=== PATIENT | female | born 1965 | race Caucasian/White ===

== ENCOUNTER 2018-09-02 09:57 | Emergency (ER) | payer MEDICARE, OTHER, SELFPAY ==
[2018-09-02 10:00] VITALS: BP 156/94; PULSE 74; RESP 18; TEMP 36.8; O2SAT 100
[2018-09-02 10:30] VITALS: BP 144/72; PULSE 71; O2SAT 98
[2018-09-02] MEDS: PROPARACAINE 0.5% OPHTH SOL 1 DROPS EYE-LEFT (10:46)
--- NOTE | 2018-09-02 10:48 | PC.NURSE ---
seen and evaluated at [facility] yesterday. pt also reports, worsening IBS concern for bladder infection, reports, back pain, relieved with warm blanket
--- NOTE | 2018-09-02 10:59 | ED_ITS ---
HPI - Eye Problem General Chief complaint: Eye Problems Stated complaint: VISION LOSS LFT EYE Time Seen by Provider: 09/02/18 10:12 Source: patient Mode of arrival: ambulatory Limitations: no limitations History of Present Illness HPI Narrative: Patient is a 53-year-old female who presents with left eye visual changes. She said they started yesterday after she had a migraine headache. If she has actually seen evaluated yesterday at [facility] where she had head CT blood work and visual acuity. She had Toradol and Benadryl and was released. She actually has an Ophthalmology appointment on Tuesday. She feels like has a squiggly line in her vision is and is worried about a retinal detachment. She does not have curtian closing or loss of vision , blackness, she seems to have some left upper quadrant visual changes which she says is blurry. It sounds more like she has floaters because it seems to be moving around. She is complaining of some eye pain and has been rubbing her eye. She has no eye discharge redness or irritation. MD chief complaint: eye pain and vision change Related Data Previous Rx's Medication Instructions Recorded gentamicin 2 drop EYE-LEFT Q4W #5 ml 09/02/18 Allergies Allergy/AdvReac Type Severity Reaction Status Date / Time codeine Allergy Verified 09/02/18 10:37 Review of Systems Review of Systems All systems reviewed & are unremarkable except as noted in HPI and below Constitutional Denies chills, Denies fever(s), Reports headache(s), Denies lethargy and Denies weakness Eyes Reports as per HPI ENT Ears, Nose, Mouth, and Throat: Reports as per HPI and Reports headache(s) Cardiovascular Denies chest pain, Denies irregular heart rhythm, Denies lightheadedness, Denies palpitations, Denies dyspnea, Denies dyspnea on exertion and Denies orthopnea Respiratory Denies cough, Denies dyspnea, Denies dyspnea on exertion and Denies wheezing Gastrointestinal Gastrointestinal: Denies abdominal pain, Denies change in bowel habits, Denies diarrhea, Denies nausea and Denies vomiting Genitourinary Comments: History of interstitial cystitis Musculoskeletal Reports back pain (Right buttock back pain-on radiating), Denies muscle weakness , Denies numbness, Denies radiating pain into limb and Denies tingling Integumentary/Breasts Denies pruritus, Denies erythema, Denies rash and Denies wounds Neurologic Reports headache(s), Denies numbness, Denies tingling and Denies weakness Endocrine Denies palpitations Allergic/Immunologic Denies wheezing PFSH Medical History Interstitial cystitis (Acute) Social History Smoking Status: Never smoker Exam Initial Vital Signs Initial Vital Signs: Vital Signs Temperature 98.3 F 09/02/18 10:00 Pulse Rate 74 09/02/18 10:00 Respiratory Rate 18 09/02/18 10:00 Blood Pressure 156/94 H 09/02/18 10:00 Pulse Oximetry 100 09/02/18 10:00 GENERAL: Well-appearing, well-nourished and in no acute distress. HEENT: Head atraumatic,EOMI, pupils reactive, EYES CARDIOVASCULAR: Regular rate and rhythm without murmurs, rubs or gallops. RESPIRATORY: Breath sounds equal bilaterally, no wheezes rales or rhonchi. ABDOMEN: Soft, nontender. Normoactive bowel sounds all 4 quadrants. No guarding or rebound. : No CVA tenderness BACK: No vertebral tenderness no step-offs some right gluteal low lumbar EXTREMITIES: Normal range of motion, no clubbing or edema. Neurovascularly intact NEUROLOGICAL: Alert and oriented x4.Normal gait and speech. Cranial nerves II through XII grossly intact. Good [id number], good [id number], strength equal bilaterally, no dysarthria or aphasia, sensation in tact to soft touch bilaterally, no visual changes, no facial droop SKIN: Warm, dry, no laceration, no petechiae, no rashes or lesions. Eyes General: appearance normal, both eyes and all related structures Visual Shea: normal visual shea by confrontation Alignment and Position: alignment normal Periorbital: periorbital findings normal Eyelids: eyelids normal Conjunctivae: conjunctivae normal Sclera: sclerae normal Cornea: corneas abnormal on the left (Small dye uptake at 9:00 a.m. position) and fluorescein used Other: Pressure in the left eye is 24 mg of mercury, pressure in right eye is 23 mg of mercury Bedside ultrasound of left eye does not show retinal detachment or vitreous humor hemorrhage Scores NIH Stroke Scale Level of Conciousness: Alert, keenly responsive Ask month/age: Answers both questions correctly. Open/close eyes, close hand: Performs both tasks correctly Best gaze horizontal: Normal Visual shea: No visual loss Facial palsy: Normal symetrical movement Left arm drift: No drift for full 10 sec Right arm drift: No drift for full 10 sec Left leg drift: No drift for full 10 sec Right leg drift: No drift for full 10 sec Limb ataxia: Absent Sensory on face/arms/legs: Normal, no sensory loss Best language: No aphasia, normal Dysarthria: Normal Extinction or inattention: No abnormality Total NIH Stroke scale score: 0 Course Orders Ordered: ED Orders 09/02/18 10:14 B Type Natriuretic Peptide Stat Blood Culture Stat Complete Blood Count AUTO DIFF Stat Comprehensive Metabolic Panel Stat Lactate (Lactic Acid) Stat Procalcitonin Stat 09/02/18 10:15 Troponin & CK Cardiac Panel Stat Discontinued Medications Ceftriaxone Sodium/Dextrose (Rocephin) 1 gm in 50 mls @ 100 mls/hr IV NOW ONE Stop: 09/02/18 10:44 Azithromycin 500 mg/ Dextrose 250 mls @ 250 mls/hr IV NOW ONE Stop: 09/02/18 10:15 Sodium Chloride (Normal Saline 0.9%) 1,000 mls @ 200 mls/hr IV CONT SCOT Ketorolac Tromethamine (Toradol) 30 mg IV NOW ONE Stop: 09/02/18 10:33 Ondansetron HCl (Zofran) 4 mg IV NOW ONE Stop: 09/02/18 10:33 Proparacaine HCl (Parcaine 0.5% Ophth Norma) 1 drops EYE-LEFT NOW ONE Stop: 09/02/18 10:46 Last Admin: 09/02/18 10:46 Dose: 1 drop Vital Signs - 8 hr 09/02/18 10:00 09/02/18 10:30 09/02/18 11:00 Temperature 98.3 F Pulse Rate 74 71 64 Respiratory Rate 18 Blood Pressure 156/94 H Blood Pressure [Right Arm] 144/72 H 120/68 Pulse Oximetry 100 98 97 MDM - Eye Problem Lab Data Urine Dip Bedside Urine Glucose Negative Bedside Urine Bilirubin - Negative Bedside Urine Ketone - Negative Urine Specific [place] 1.010 Bedside Urine Occult Blood - Negative Bedside Urine pH 6.0 Bedside Urine Protein - Negative Bedside Urine Urobilinogen - Negative Bedside Urine Nitrite - Negative Bedside Urine Leukocytes - Negative Esterase MDM Narrative Medical decision making narrative: Patient has no signs or symptoms of stroke she had a negative head CT and blood work up yesterday. She is concerned because her eye is still painful. She does have a small corneal abrasion but no direct injury she has been rubbing it a lot. She has appointment with Ophthalmology on Tuesday.. Her visual deficit does not seem to be partial hemianopsia or stroke related. She feels better after the pressure in her eye was checked and is confirm she has not have a retinal detachment. Discharge Plan Departure Patient Disposition: Home Clinical Impression: Corneal abrasion Instructions: Corneal Abrasion Activity Restrictions/Additional Instructions: *You have been diagnosed with corneal abrasion *What to do: At this time pressure in both eyes are equal and normal no sign of glaucoma or retinal detachment *Continue to take medications as directed -2 drops left eye every 4 hr while awake for 1 *Follow up with your primary care provider in 2-3 days, follow up with Ophthalmology as previously scheduled on Tuesday *Return to ER if you should have any new, worsening or concerning symptoms Prescriptions: New gentamicin 0.3 % drops 2 drop EYE-LEFT Q4W Qty: 5 RF: 0 Referrals: Chelle Ndiaye, MSN [Primary Care Provider] -
[2018-09-02 11:00] VITALS: BP 120/68; PULSE 64; O2SAT 97
== END 2018-09-02 11:32 | disposition home or self-care (01) ==
PROVIDERS: Emergency Provider Emergency Medicine; Family Provider Nurse Practitioner Primary Care; PCP Nurse Practitioner Primary Care
DX: S05.02XA Injury of conjunctiva and corneal abrasion without foreign body, left eye, initial encounter (principal)
CPT/HCPCS: 81003; 99283

== ENCOUNTER 2020-05-20 07:15 | Emergency (ER) | payer MEDICARE, OTHER, SELFPAY ==
[2020-05-20] VITALS (10 sets, daily range): BP systolic 152–186; BP diastolic 85–94; PULSE 72–100; RESP 12–21; TEMP 36.9; O2SAT 97–100; BMI 27.4
--- NOTE | 2020-05-20 07:48 | ED_ITS ---
HPI - Headache General Chief Complaint: Headache Stated Complaint: HEADACHE,NAUSEA,DIZZY Time Seen by Provider: 05/20/20 07:29 Mode of arrival: Ambulatory Limitations: no limitations History of Present Illness HPI Narrative: CC: Bifrontal Headache HPI: The patient is a 54-year-old female with a history of migraine cephalgia. The patient states that she has had is severe headache today that is located by frontally and is a dull achy discomfort that is intermittently throbbing. The pain is 9/10 in intensity. She complains that she has been dizzy and describes this dizziness as mild lightheadedness and that her balance is off without vertigo. She states that the headache is identical to her previous headaches. She states that she has had of blurred vision but denies any double vision loss of vision or scotomata. She denies any abdominal pain but states that she has bloating of her abdomen without vomiting. She has had no indigestion or heartburn. She complains of rectal pain on wiping and when she is walking. She admits to history of hemorrhoids. She has had no diarrhea , vomiting urinary symptoms chest pain cough shortness of breath palpitations dysphasia sore throat nasal drainage fever chills but has had intermittent sweats. She has had phonophobia and photophobia. She developed sweats associated with the use of her Cymbalta She does not smoke cigarettes, drink alcohol but uses edible marijuana/cannabis. She denies a history of diabetes mellitus stroke myocardial infarction asthma but has had hypertension. Related Data Previous Rx's Medication Instructions Recorded gentamicin 2 drop EYE-LEFT Q4W #5 ml 09/02/18 diphenhydramine HCl [Benadryl 25 mg PO Q6H PRN #20 tab 05/20/20 Allergy] naproxen [Naprosyn] 500 mg PO BID PRN #20 tab 05/20/20 prochlorperazine [Compazine] 25 mg OK Q12H PRN #12 each 05/20/20 sumatriptan succinate [Imitrex] See Rx Instructions .ROUTE 05/20/20 .COMPLEX #12 tab Allergies Allergy/AdvReac Type Severity Reaction Status Date / Time codeine Allergy Verified 09/02/18 10:37 Review of Systems Review of Systems Narrative: Patient's review of systems are all negative except for those mentioned in history of present illness Patient History Medical History Interstitial cystitis (Acute) Social History Smoking Status: Never smoker Smoking Status: Never smoker alcohol intake frequency: other Substance Use Type: does not use Exam Narrative Exam Narrative: PHYSICAL EXAM: CONSTITUTIONAL: Awake, Alert, Oriented, moderate distress slow to move. HEAD: AT/NC, no temporal tenderness EENT: PERRL, FROM of eyes, no discharge, no nystagmus, no conjunctivitis or scleral icterus NOSE:No epistaxis or nasal drainage MOUTH:Oral mucosa is moist and pink, posterior pharynx is without erythema or exudate. No focal facial asymmetry the patient has a symmetrical smile she is able to puff upper cheeks symmetrically. NECK: Supple, no obvious JVD, Trachea is midline without stridor, no palpable LN. SPINE: Palpation of the cervical, Thoracic, Lumbar or Sacral spine reveals no gross deformity or tenderness. No CVA tenderness. THORAX: No deformity, retractions, chest wall tenderness. LUNGS: Clear, symmetrical breath sounds without respiratory distress. HEART: Normal heart tones, regular rhythm and rate without murmur. ABDOMEN: Soft, non-tender, normal bowel sounds without guarding, rebound, rigidity or palpable mass. EXTREMITIES: No edema, deformity, tenderness or cyanosis. SKIN: No rash, bruising, petechiae or purpura. NEURO: Awake, alert, oriented, conversive, cranial nerves II-XII are symmetrical , moves all 4 extremities and is ambulatory. Cerebellar functions are within normal limits, strength is symmetrical sensation is symmetrical rapid alternating motions and opposition of her fingers to the thumb symmetrically are intact. MENTAL HEALTH: The patient has a blunted flat affect and appears to be mildly depressed Initial Vital Signs Initial Vital Signs: Vital Signs Temperature 98.4 F 05/20/20 07:22 Pulse Rate 83 05/20/20 07:22 Respiratory Rate 18 05/20/20 07:22 Blood Pressure 186/94 H 05/20/20 07:22 Pulse Oximetry 98 05/20/20 07:22 Course Course Course Narrative: 0859: The nurse reports that the patient was complaining that she still had her headache. The patient was informed that the bed occasions min at take her headache completely away but it is designed to make the pain and headache tolerable. Her headache improved from a 9 to 10/10 intensity to a 3-4 over 10 in intensity. She will be administered 2 g of Mag sulfate. 1106: CT of her head reveals: IMPRESSION: Unremarkable head CT. No evidence acute stroke, hemorrhage, or mass. Dictated by: Harris Lopez M.D. on 05/20/2020 at 10:19 Approved by: Harris Lopez M.D. on 05/20/2020 at 10:21 Plans to discharge the patient home. The patient has a mild perirectal tenderness no abscess palpable appears to be hemorrhoids. Orders Ordered: Discontinued Medications Diphenhydramine HCl (Benadryl) 25 mg IV NOW ONE Stop: 05/20/20 07:47 Last Admin: 05/20/20 08:08 Dose: 25 mg Documented by: OSORIO Sodium Chloride (Normal Saline 0.9%) 1,000 mls @ 1,000 mls/hr IV BOLUS ONE Stop: 05/20/20 08:45 Last Infusion: 05/20/20 09:20 Dose: 0 mls/hr Documented by: Admin: 05/20/20 08:04 Dose: 1,000 mls/hr Documented by: OSORIO Magnesium Sulfate (Magnesium Sulfate) 2 gm in 50 mls @ 25 mls/hr IV NOW ONE Stop: 05/20/20 10:59 Last Infusion: 05/20/20 12:06 Dose: 0 mls/hr Documented by: RIGOBERTO Cosigned by: FELECIA Admin: 05/20/20 09:11 Dose: 25 mls/hr Documented by: OSORIO Cosigned by: FELECIA Ketorolac Tromethamine (Toradol) 30 mg IV NOW ONE Stop: 05/20/20 07:47 Last Admin: 05/20/20 08:03 Dose: 30 mg Documented by: OSORIO Lorazepam (Ativan) 0.5 mg IV NOW ONE Stop: 05/20/20 10:03 Last Admin: 05/20/20 10:40 Dose: 0.5 mg Documented by: OSORIO Methylprednisolone (Solu-Medrol 125 Mg Vial) 125 mg IV NOW ONE Stop: 05/20/20 07:47 Last Admin: 05/20/20 08:07 Dose: 125 mg Documented by: OSORIO Methylprednisolone (Solu-Medrol 125 Mg Vial) 125 mg IV NOW ONE Stop: 05/20/20 10:02 Last Admin: 05/20/20 10:40 Dose: 125 mg Documented by: OSORIO Metoclopramide HCl (Reglan) 10 mg IV NOW ONE Stop: 05/20/20 07:47 Last Admin: 05/20/20 08:09 Dose: 10 mg Documented by: OSORIO Vital Signs Vital signs: Vital Signs - 8 hr 05/20/20 11:34 05/20/20 12:00 Pulse Rate 97 H 100 H Respiratory Rate 16 18 MDM - Headache Lab Data Result diagrams: 05/20/20 07:28 05/20/20 07:28 Labs: Lab Results 05/20/20 05/20/20 Range/Units 07:28 07:28 WBC 7.5 (4.5-11.0) X10^3/uL RBC 4.52 (4.0-5.2) X10^6/uL Hgb 12.3 (12.0-16.0) g/dL Hct 37.5 (36-46) % MCV 83.1 (80-100) fL MCH 27.1 (26-34) PG MCHC 32.6 (30-36) % RDW 13.1 (11.6-14.8) % Plt Count 274 (150-400) X10^3/uL Neut % (Auto) 65.1 (50-75) % Lymph % (Auto) 23.4 L (25-40) % Isabella % (Auto) 6.3 (3-14) % Eos % (Auto) 4.3 H (2-4) % Baso % (Auto) 0.9 (0-2) % Neut # (Auto) 4900 (2590-3162) /uL Lymph # (Auto) 1800 (2768-4350) /uL Isabella # (Auto) 500 (0-900) /uL Eos # (Auto) 300 (0-450) /uL Baso # (Auto) 100 (0-100) /uL ESR 49 H (0-20) MM/HR Sodium 137 (137-145) mmol/L Potassium 3.8 (3.4-5.1) mmol/L Chloride 104 (98-107) mmol/L Carbon Dioxide 25 (22-32) mmol/L BUN 15 (7-17) mg/dL Creatinine 0.86 (0.52-1.04) mg/dL Estimated GFR > 60.0 (>60) mL/min BUN/Creatinine Ratio 17.4 (6-22) Glucose 113 H (70-100) mg/dL Calcium 9.6 (8.4-10.2) mg/dL Urine Dip Bedside Urine Glucose Negative Bedside Urine Bilirubin - Negative Bedside Urine Ketone - Negative Urine Specific [place] 1.010 Bedside Urine Occult Blood - Negative Bedside Urine pH 6.0 Bedside Urine Protein - Negative Bedside Urine Urobilinogen - Negative Bedside Urine Nitrite - Negative Bedside Urine Leukocytes - Negative Esterase Discharge Plan Departure Patient Disposition: Home Clinical Impression: Pain, rectal Migraine Qualifiers: Migraine type: unspecified Status migrainosus presence: without status migrainosus Intractability: not intractable Qualified Code(s): G43.909 - Migraine, unspecified, not intractable, without status migrainosus Discharge Date/Time: 05/20/20 12:47 Prescriptions: New sumatriptan succinate [Imitrex] 50 mg tablet See Rx Instructions .ROUTE .COMPLEX Qty: 12 RF: 0 naproxen [Naprosyn] 500 mg tablet 500 mg PO BID PRN (Reason: pain) Qty: 20 RF: 0 prochlorperazine [Compazine] 25 mg suppository 25 mg OK Q12H PRN (Reason: nausea and vomiting) Qty: 12 RF: 0 diphenhydramine HCl [Benadryl Allergy] 25 mg tablet 25 mg PO Q6H PRN (Reason: nausea and vomiting) Qty: 20 RF: 0 No Action gentamicin 0.3 % drops 2 drop EYE-LEFT Q4W Qty: 5 RF: 0
[2020-05-20 08:01] LABS: Add Manual Diff / Slide Review NO; Basophils Absolute Auto 100 /uL (0-100); Basophils Percent Auto 0.9 % (0-2); Eosinophils Absolute Auto 300 /uL (0-450); Eosinophils Percent Auto 4.3 % (2-4); Hematocrit 37.5 % (36-46); Hemoglobin 12.3 g/dL (12.0-16.0); Lymphocytes Absolute Auto 1800 /uL (1100-4500); Lymphocytes Percent Auto 23.4 % (25-40); Mean Corpuscular HGB Conc 32.6 % (30-36); Mean Corpuscular Hemoglobin 27.1 PG (26-34); Mean Corpuscular Volume 83.1 fL (80-100); Monocytes Absolute Auto 500 /uL (0-900); Monocytes Percent Auto 6.3 % (3-14); Neutrophils Absolute Auto 4900 /uL (1500-7000); Neutrophils Percent Auto 65.1 % (50-75); Platelet Count 274 X10^3/uL (150-400); Red Blood Cell Count 4.52 X10^6/uL (4.0-5.2); Red Cell Distribution Width 13.1 % (11.6-14.8); White Blood Cell Count 7.5 X10^3/uL (4.5-11.0)
[2020-05-20 08:03] LABS: BUN Creatinine Ratio 17.4 (6-22); Blood Urea Nitrogen 15 mg/dL (7-17); Calcium 9.6 mg/dL (8.4-10.2); Carbon Dioxide 25 mmol/L (22-32); Chloride 104 mmol/L (98-107); Estimated Glomerular Filt Rate > 60.0 mL/min (>60); Glucose 113 mg/dL (70-100); HEMOLYSIS 18 (0-50); Potassium 3.8 mmol/L (3.4-5.1); Sodium 137 mmol/L (137-145)
[2020-05-20] MEDS: KETOROLAC 60 MG/2 ML VIAL 30 MG IV (08:03)
[2020-05-20] MEDS: SODIUM CHLORIDE 0.9% 1,000 ML 1000 ML IV (08:04)
[2020-05-20] MEDS: methylPREDNISolone 125 MG/2 ML VIAL IV ×2 (08:07→10:40)
[2020-05-20] MEDS: diphenhydrAMINE 50 MG/ML VIAL 25 MG IV (08:08)
[2020-05-20] MEDS: METOCLOPRAMIDE 10 MG/2 ML INJ IV (08:09)
[2020-05-20 08:13] LABS: Erythrocyte Sedimentation Rate 49 MM/HR (0-20)
[2020-05-20] MEDS: MAGNESIUM SULFATE 2 GM/50 ML PIGGYBACK IV (09:11)
--- NOTE | 2020-05-20 10:03 | DI.CT.S_ITS ---
PROCEDURE: CT HEAD/BRAIN WO CON INDICATIONS: headache TECHNIQUE: Noncontrast 4.5 mm thick angled axial sections acquired from the foramen magnum to the vertex, with coronal and sagittal reformats. For radiation dose reduction, the following was used: automated exposure control, adjustment of mA and/or kV according to patient size. COMPARISON: [facility], CT, HEAD WITHOUT CONTRAST, 05/01/2015, 20:43. FINDINGS: Image quality: Excellent. CSF spaces: Basal cisterns are patent. No extra-axial fluid collections. Ventricles are normal in size and shape. Brain: No midline shift. No intracranial masses or hemorrhage. Currie-white matter interface is normal. Skull and face: Calvarium and visualized facial bones are intact, without suspicious lesions. Sinuses: Visualized sinuses and mastoids are clear. IMPRESSION: Unremarkable head CT. No evidence acute stroke, hemorrhage, or mass. Dictated by: Harris Lopez M.D. on 05/20/2020 at 10:19 Approved by: Harris Lopez M.D. on 05/20/2020 at 10:21
[2020-05-20] MEDS: LORazepam 2 MG/ML INJ 0.5 MG IV (10:40)
== END 2020-05-20 12:47 | disposition home or self-care (01) ==
PROVIDERS: Emergency Provider Emergency Medicine; Family Provider Nurse Practitioner Primary Care
DX: G43.909 Migraine, unspecified, not intractable, without status migrainosus (principal); R42 Dizziness and giddiness; K62.89 Other specified diseases of anus and rectum
CPT/HCPCS: 36415; 70450; 80048; 81003; 85025; 85651; 96361; 96374; 96375; 96376; 99284; J1200; J1885; J2060; J2765; J2930

== ENCOUNTER 2021-02-19 10:56 | Emergency (ER) | payer MEDICARE, OTHER, SELFPAY ==
[2021-02-19 11:05] VITALS: BP 139/91; PULSE 100; RESP 15; TEMP 37.3; O2SAT 97
--- NOTE | 2021-02-19 11:23 | ED_ITS ---
HPI - General Adult General Chief complaint: Urogenital-Female Stated complaint: suspects UTI, blood in urine, lots of pain Time Seen by Provider: 02/19/21 11:16 Source: patient Mode of arrival: Ambulatory Limitations: no limitations History of Present Illness HPI narrative: Patient is a 55-year-old female who is here for evaluation of a potential urinary tract infection. She states that she has been having blood when she urinates but she is unsure whether it is coming from her urine or from other areas such as her vagina. She is also complaining of some mild lower abdominal pain. She is afebrile. Approximately 2 weeks ago was placed on metronidazole cream for a potential infection although she states that she did not have any exam at that time. She is also having itching. She is unsure whether not it is the metronidazole cream that is causing the problems are not but she does not feel like she is getting better. Is having some nausea but no vomiting. Chills and sweats. Is also having a slight headache. Related Data Previous Rx's Medication Instructions Recorded gentamicin 2 drop EYE-LEFT Q4W #5 ml 09/02/18 diphenhydramine HCl [Benadryl 25 mg PO Q6H PRN #20 tab 05/20/20 Allergy] naproxen [Naprosyn] 500 mg PO BID PRN #20 tab 05/20/20 prochlorperazine [Compazine] 25 mg MD Q12H PRN #12 each 05/20/20 sumatriptan succinate [Imitrex] See Rx Instructions .ROUTE 05/20/20 .COMPLEX #12 tab duloxetine 60 mg PO BID #60 cap 02/19/21 metronidazole [Flagyl] 500 mg PO BID 7 Days #14 tab 02/19/21 sumatriptan succinate [Imitrex] 6 mg SUBCUT Q1-4H PRN #2.5 ml 02/19/21 Allergies Allergy/AdvReac Type Severity Reaction Status Date / Time codeine Allergy Verified 02/19/21 11:11 Review of Systems Constitutional Constitutional: Reports chills, Reports fatigue and Reports frequent falls ENT Ears, Nose, Mouth, and Throat: Denies sore throat Cardiovascular Cardiovascular: Denies chest pain and Denies dyspnea Respiratory Respiratory: Denies dyspnea Gastrointestinal Gastrointestinal: Reports abdominal pain, Denies diarrhea, Reports nausea and Denies vomiting Genitourinary Genitourinary: Reports dysuria Genitourinary: Reports dysuria and Reports vaginal discharge Integumentary/Breasts Skin/Breast: Denies rash Neurologic Neurologic: Denies behavioral changes and Reports frequent falls Psychiatric Psychiatric: Denies behavioral changes Endocrine Endocrine: Reports fatigue Hematologic/Lymphatic On Anticoagulants: No Allergic/Immunologic Allergic/Immunologic: Denies urticaria Patient History Medical History Interstitial cystitis Surgical History (Updated 06/30/20 @ 14:56 by Ashlyn Ritter LPN) H/O abdominal hysterectomy History of bladder surgery History of cholecystectomy Hx of tonsillectomy Social History Smoking Status: Never smoker Smoking Status: Never smoker alcohol intake frequency: other Substance Use Type: does not use Exam Initial Vital Signs Initial Vital Signs: Vital Signs Temperature 99.1 F 02/19/21 11:05 Pulse Rate 100 H 02/19/21 11:05 Respiratory Rate 15 02/19/21 11:05 Blood Pressure 139/91 H 02/19/21 11:05 Pulse Oximetry 97 02/19/21 11:05 Const General: cooperative and comfortable Limitations: mental status not altered HENMT Head: normal to inspection and normocephalic Eyes General: appearance normal, both eyes and all related structures Resp Effort & Inspection: normal respiratory effort Auscultation: clear to auscultation bilaterally Cardio Rate: regular rate Rhythm: regular rhythm GI Inspection: non-distended Palpation: soft, No firm and tender (Lower abdomen) Speculum Exam - Vagina: abnormal vaginal discharge clear, not erythematous, No vaginal bleeding and no masses Speculum Exam - Cervix: normal appearance of the cervix OB/External & Speculum: No vaginal bleeding Skin Lesions: no lesions Rashes: no rashes Neuro General: patient alert and patient awake Cognition: normal cognition Speech: speech normal Extrem General: normal to inspection and capillary refill normal Psych Appearance: grossly normal and well kempt Course Orders Ordered: ED Orders 02/19/21 13:56 Chlamydia/Gonoc/Myco Genital Stat ANKIT Prep Stat Wet Prep Tric BV Vanessa Stat Discontinued Medications Lorazepam (Lorazepam 0.5 Mg Tablet) 1 mg PO NOW ONE Stop: 02/19/21 11:52 Last Admin: 02/19/21 12:00 Dose: 1 mg Documented by: ALM Vital Signs Vital signs: Vital Signs - 8 hr 02/19/21 11:05 02/19/21 14:31 Temperature 99.1 F 98.5 F Pulse Rate 100 H 90 Respiratory Rate 15 16 Blood Pressure 139/91 H 135/91 H Pulse Oximetry 97 99 Medical Decision Making Lab Data Lab results reviewed: Yes I reviewed the patient's lab results. Labs: Urine Dip Bedside Urine Glucose Negative Bedside Urine Bilirubin - Negative Bedside Urine Ketone - Negative Urine Specific [place] 1.010 Bedside Urine Occult Blood - Negative Bedside Urine pH 6.0 Bedside Urine Protein - Negative Bedside Urine Urobilinogen +/- 1mg Bedside Urine Nitrite - Negative Bedside Urine Leukocytes - Negative Esterase Point of care testing: Urine Dip Bedside Urine Glucose Negative Bedside Urine Bilirubin - Negative Bedside Urine Ketone - Negative Urine Specific [place] 1.010 Bedside Urine Occult Blood - Negative Bedside Urine pH 6.0 Bedside Urine Protein - Negative Bedside Urine Urobilinogen +/- 1mg Bedside Urine Nitrite - Negative Bedside Urine Leukocytes - Negative Esterase MDM Narrative Medical decision making narrative: Her urine today does not show any signs of an infection. There is no in her urine. They pelvic exam was performed with nursing at bedside. She does have clue cells but no signs of yeast. There was no bleeding noted. She has been on metronidazole but it does not seem to be helping any of her symptoms so we will switch her to oral metronidazole from the vaginal cream which she has been using. No indication for antibiotics. She also would like a prescription for her duloxetine which I prescribed for her as a refill. Will have her contact her primary provider for follow-up. She expressed understanding and agreement. Discharge Plan Departure Patient Disposition: Home Clinical Impression: Bacterial vaginosis Instructions: DI for Bacterial Vaginosis Prescriptions: New duloxetine 60 mg capsule,delayed release(DR/EC) 60 mg PO BID Qty: 60 RF: 0 metronidazole [Flagyl] 500 mg tablet 500 mg PO BID 7 Days Qty: 14 RF: 0 sumatriptan succinate [Imitrex] 6 mg/0.5 mL solution 6 mg SUBCUT Q1-4H PRN (Reason: migraine headache) Qty: 2.5 RF: 0 No Action gentamicin 0.3 % drops 2 drop EYE-LEFT Q4W Qty: 5 RF: 0 sumatriptan succinate [Imitrex] 50 mg tablet See Rx Instructions .ROUTE .COMPLEX Qty: 12 RF: 0 naproxen [Naprosyn] 500 mg tablet 500 mg PO BID PRN (Reason: pain) Qty: 20 RF: 0 prochlorperazine [Compazine] 25 mg suppository 25 mg MD Q12H PRN (Reason: nausea and vomiting) Qty: 12 RF: 0 diphenhydramine HCl [Benadryl Allergy] 25 mg tablet 25 mg PO Q6H PRN (Reason: nausea and vomiting) Qty: 20 RF: 0 Referrals: Chevy Gomez MD [Primary Care Provider] -
[2021-02-19] MEDS: LORazepam 0.5 MG TABLET 1 MG PO (12:00)
[2021-02-19 14:31] VITALS: BP 135/91; PULSE 90; RESP 16; TEMP 36.9; O2SAT 99
[2021-02-22 06:28] LABS: Chlamydia trachomatis Negative (Negative); Mycoplasma genitalium Negative (Negative); Neisseria gonorrhoeae Negative (Negative)
== END 2021-02-19 14:32 | disposition home or self-care (01) ==
PROVIDERS: Emergency Provider Emergency Medicine; Family Provider Nurse Practitioner Primary Care; PCP Internal Medicine
DX: N76.0 Acute vaginitis (principal); R11.0 Nausea; R51.9 Headache, unspecified
CPT/HCPCS: 81003; 87210; 87220; 87491; 87563; 87591; 99283

== ENCOUNTER 2022-11-22 05:26 | Emergency (ER) | payer MEDICARE, OTHER, MEDICAID, SELFPAY ==
[2022-11-22] VITALS (12 sets, daily range): BP systolic 128–151; BP diastolic 68–91; PULSE 85–97; RESP 18; TEMP 36.6; O2SAT 96–98; BMI 27.6
--- NOTE | 2022-11-22 05:14 | ED.GENADULT ---
HPI - General Adult <Helen Phillips MD - Last Filed: 01/09/23 05:31> General Chief complaint: Nausea/Vomiting/Diarrhea Stated complaint: Loose stools Time Seen by Provider: 11/22/22 05:28 History of Present Illness HPI narrative: 57-year-old woman presents via medics with vague complaints that she does not feel well, she is weak, she is very concerned about possible low potassium and she is complaining that she is unable to stop her legs from shaking. She was seen at [facility]] yesterday with fairly thorough workup done at that time. She states that she is spent the last year in a group family home and about a week ago felt that she was doing well enough that she could live with her friend Immanuel and his family. She was apparently at the group family home after a suicide attempt. She does not know specifics of her medical history or medications but is concerned that some of the medications have been lost in transition from the group family home a week ago. She initially states that she is been having severe diarrhea but when further questioned turns out she is having 1-2 soft stools daily and has been doing that for the last year. She complains of abdominal pain but no fevers or chills. Available medications indicate chronic pain, hypertension treated with amlodipine and hydrochlorothiazide, potassium supplementation started yesterday at would be, benztropine to avoid extrapyramidal syndrome, aripiprazole for depression, tramadol for pain control and hydroxyzine for anxiety. Not on her list specifically is venlafaxine which she believes she does take. Looking through pharmacy records she is had recent fills of both the 75 ER strength as well as 150 mg ER strength, neither of those are in her med bag and may have been missing for the last week. Related Data Previous Rx's Medication Instructions Recorded gentamicin 0.3 % eye drops 2 drop EYE-LEFT Q4W #5 mL 09/02/18 diphenhydramine HCl 25 mg tablet 25 mg PO Q6H PRN nausea and 05/20/20 (Benadryl Allergy) vomiting #20 tabs naproxen 500 mg tablet (Naprosyn) 500 mg PO BID PRN pain #20 tabs 05/20/20 prochlorperazine 25 mg rectal 25 mg NV Q12H PRN nausea and 05/20/20 suppository (Compazine) vomiting #12 ea sumatriptan succinate 50 mg tablet See Rx Instructions PO .COMPLEX 05/20/20 (Imitrex) #12 tabs duloxetine 60 mg capsule,delayed 60 mg PO BID #60 caps 02/19/21 release sumatriptan succinate 6 mg/0.5 mL 6 mg (0.5 mL) SUBCUT Q1-4H PRN 02/19/21 subcutaneous solution (Imitrex) migraine headache #2.5 mL gabapentin 400 mg capsule 400 mg PO TID #21 caps 11/22/22 Allergies Allergy/AdvReac Type Severity Reaction Status Date / Time codeine Allergy Verified 02/19/21 11:11 Review of Systems <Helen Phillips MD - Last Filed: 01/09/23 05:31> Review of Systems Narrative: Remainder of complete review of systems is otherwise unremarkable except for that included in the HPI. Patient History <Helen Phillips MD - Last Filed: 01/09/23 05:31> Medical History (Updated 12/07/22 @ 00:01 by ) Depression Hypertension Hypothyroidism (acquired) Interstitial cystitis Surgical History (Updated 06/30/20 @ 14:56 by Ashlyn Ritter LPN) H/O abdominal hysterectomy History of bladder surgery History of cholecystectomy Hx of tonsillectomy Social History Smoking Status: Never smoker Exam <Helen Phillips MD - Last Filed: 01/09/23 05:31> Initial Vital Signs Initial Vital Signs: Vital Signs Pulse Oximetry 98 11/22/22 05:30 Oxygen Delivery Method Room Air 11/22/22 05:30 General: Disheveled, fearful appearing, anxious with tremors. Tangential history HEENT: Moist mucous membranes, normal sclera with reactive pupils, Neck: No JVD, supple Respiratory: Lungs are clear to auscultation, no wheezing no rales no rhonchi. Full and symmetrical air movement Cardiac: Regular rate and rhythm no murmurs no bruits Abdomen: Soft, nontender, good bowel tones, no flank pain Skin: Warm and dry, no rashes Neurologic: Grossly neurologically intact with no obvious asymmetries or abnormalities Extremities: No trauma, well perfused Psych: Cooperative, poor focus, confusion <Juan Luis Fairchild DO - Last Filed: 11/22/22 19:48> Initial Vital Signs Initial Vital Signs: Vital Signs Pulse Oximetry 98 11/22/22 05:30 Oxygen Delivery Method Room Air 11/22/22 05:30 Course <Helen Phillips MD - Last Filed: 01/09/23 05:31> Orders Ordered: Discontinued Medications Lorazepam (Lorazepam 0.5 Mg Tablet) 1 mg PO NOW ONE Stop: 11/22/22 08:30 Last Admin: 11/22/22 08:34 Dose: 1 mg Documented By: SKY Venlafaxine HCl (Venlafaxine Er 75 Mg Cap) 75 mg PO DAILY ONE Stop: 11/22/22 05:55 Last Admin: 11/22/22 06:16 Dose: 75 mg Documented By: [place] Vital Signs Vital signs: Vital Signs - 8 hr 11/22/22 13:54 11/22/22 13:55 Blood Pressure 151/83 H Pulse Oximetry 97 <Juan Luis Fairchild DO - Last Filed: 11/22/22 19:48> Orders Ordered: Discontinued Medications Lorazepam (Lorazepam 0.5 Mg Tablet) 1 mg PO NOW ONE Stop: 11/22/22 08:30 Last Admin: 11/22/22 08:34 Dose: 1 mg Documented By: SKY Venlafaxine HCl (Venlafaxine Er 75 Mg Cap) 75 mg PO DAILY ONE Stop: 11/22/22 05:55 Last Admin: 11/22/22 06:16 Dose: 75 mg Documented By: [place] Vital Signs Vital signs: Vital Signs - 8 hr 11/22/22 13:54 11/22/22 13:55 Blood Pressure 151/83 H Pulse Oximetry 97 Medical Decision Making <Helen Phillips MD - Last Filed: 01/09/23 05:31> Lab Data 11/22/22 05:55 11/22/22 05:55 Labs: Lab Results 11/22/22 11/22/22 11/22/22 Range/Units 05:55 05:55 09:30 WBC 8.0 (4.5-11.0) X10^3/uL RBC 4.55 (4.0-5.2) X10^6/uL Hgb 13.0 (12.0-16.0) g/dL Hct 38.7 (36-46) % MCV 85.1 (80-100) fL MCH 28.5 (26-34) PG MCHC 33.5 (30-36) % RDW 13.2 (11.6-14.8) % Plt Count 265 (150-400) X10^3/uL Neut % (Auto) 73.9 (50-75) % Lymph % (Auto) 15.5 L (25-40) % [place] % (Auto) 7.7 (3-14) % Eos % (Auto) 2.3 (2-4) % Baso % (Auto) 0.6 (0-2) % Neut # (Auto) 5900 (0266-0112) /uL Lymph # (Auto) 1200 (9369-6147) /uL [place] # (Auto) 600 (0-900) /uL Eos # (Auto) 200 (0-450) /uL Baso # (Auto) 0 (0-100) /uL Sodium 139 (137-145) mmol/L Potassium 3.2 L (3.4-5.1) mmol/L Chloride 103 (98-107) mmol/L Carbon Dioxide 25 (22-32) mmol/L BUN 18 H (7-17) mg/dL Creatinine 0.65 (0.52-1.04) mg/dL Estimated GFR > 60 (>60) mL/min BUN/Creatinine Ratio 27.7 H (6-22) Glucose 128 H (70-100) mg/dL Calcium 9.0 (8.4-10.2) mg/dL Urine RBC 0-1/hpf (0-5/HPF) Urine WBC None seen (0-5/HPF) Ur Squamous Epith Cells None seen (0-5/HPF) Urine Bacteria None seen (None) Ur Culture Indicated? Cult not indicated Urine Dip Bedside Urine Glucose Negative Bedside Urine Bilirubin - Negative Bedside Urine Ketone - Negative Urine Specific [place] 1.010 Bedside Urine Occult Blood +/- Bedside Urine pH 7.0 Bedside Urine Protein - Negative Bedside Urine Urobilinogen - Negative Bedside Urine Nitrite - Negative Bedside Urine Leukocytes - Negative Esterase Point of care testing: Urine Dip Bedside Urine Glucose Negative Bedside Urine Bilirubin - Negative Bedside Urine Ketone - Negative Urine Specific [place] 1.010 Bedside Urine Occult Blood +/- Bedside Urine pH 7.0 Bedside Urine Protein - Negative Bedside Urine Urobilinogen - Negative Bedside Urine Nitrite - Negative Bedside Urine Leukocytes - Negative Esterase MDM Narrative Medical decision making narrative: CC: Weakness, uncontrolled tremor, diarrhea. Issues are all quite vague and it is unclear which are new. Uncertain diagnosis with complexity secondary to tangential history from patient Complicating co-morbidities: Depression, anxiety Corroborating data: Data collected from: patient, Social determinants of health that may influence the patients condition: Recently discharged from a group family home, does not feel that she is doing well living independently 2nd ED visit in the week since discharge Medical records reviewed: Records from [facility] ER visit yesterday are reviewed. CBC chemistries urine all obtained only significant finding was a potassium at 2.9. Respiratory panel was run and did not detect any specific viruses. Her chief complaint yesterday was chills and sweats for a week. Urine drug screen was negative. She was discharged home with potassium to take for an additional 20 days. Differential considered: Psychiatric decompensation, side effects from abrupt discontinuation of venlafaxine, hypokalemia, given workup done within 24 hours as described above infectious etiology worse is less likely. Exam documented above, pertinent findings include: Nonspecific, she seems frightened and tremulous quite tangential Lab Test results independently reviewed as above. Pertinent findings: CBC: No leukocytosis, no anemia Chemistries show potassium repleted and appropriate at 3.8 Consultations: Will need DIMMER BOARD OPERATOR involved in overall care for discharge home Treatments: She is given 75 mg of venlafaxine. From pharmacy records unclear whether she is taking 75 or 150 mg. It does look like she has not taken it for least a week and that may well be contributing to overall symptoms Re-evaluations:635am after a L of fluid she is actually feeling better still complaining of significant dizziness. I do think that the venlafaxine missing over the last week is contributing to her overall issues. She is many questions about her medications and I think she would benefit from pharmacy prepackaged medications. It sounds like she is planning to go grocery shopping with a friend this morning even though she is been home for an entire week. Sounds like she is still trying to get moved in to her living situation and is a bit overwhelmed with all of this. She is quite interested in talking with the director of social services. We will need to sort out medications. She is currently feeling overwhelmed with her transition back home but is denying any suicidal ideation. Care will be transferred to Dr. Fairchild at change of shift Discussion: Disposition: see below, along with detailed discharge instructions that have been reviewed with patient as well as indications for ED re-evaluation and additional outpatient follow up <Juan Luis Fairchild, - Last Filed: 11/22/22 19:48> Lab Data Labs: Lab Results 11/22/22 11/22/22 11/22/22 Range/Units 05:55 05:55 09:30 WBC 8.0 (4.5-11.0) X10^3/uL RBC 4.55 (4.0-5.2) X10^6/uL Hgb 13.0 (12.0-16.0) g/dL Hct 38.7 (36-46) % MCV 85.1 (80-100) fL MCH 28.5 (26-34) PG MCHC 33.5 (30-36) % RDW 13.2 (11.6-14.8) % Plt Count 265 (150-400) X10^3/uL Neut % (Auto) 73.9 (50-75) % Lymph % (Auto) 15.5 L (25-40) % [place] % (Auto) 7.7 (3-14) % Eos % (Auto) 2.3 (2-4) % Baso % (Auto) 0.6 (0-2) % Neut # (Auto) 5900 (1563-9292) /uL Lymph # (Auto) 1200 (2774-6809) /uL [place] # (Auto) 600 (0-900) /uL Eos # (Auto) 200 (0-450) /uL Baso # (Auto) 0 (0-100) /uL Sodium 139 (137-145) mmol/L Potassium 3.2 L (3.4-5.1) mmol/L Chloride 103 (98-107) mmol/L Carbon Dioxide 25 (22-32) mmol/L BUN 18 H (7-17) mg/dL Creatinine 0.65 (0.52-1.04) mg/dL Estimated GFR > 60 (>60) mL/min BUN/Creatinine Ratio 27.7 H (6-22) Glucose 128 H (70-100) mg/dL Calcium 9.0 (8.4-10.2) mg/dL Urine RBC 0-1/hpf (0-5/HPF) Urine WBC None seen (0-5/HPF) Ur Squamous Epith Cells None seen (0-5/HPF) Urine Bacteria None seen (None) Ur Culture Indicated? Cult not indicated Urine Dip Bedside Urine Glucose Negative Bedside Urine Bilirubin - Negative Bedside Urine Ketone - Negative Urine Specific [place] 1.010 Bedside Urine Occult Blood +/- Bedside Urine pH 7.0 Bedside Urine Protein - Negative Bedside Urine Urobilinogen - Negative Bedside Urine Nitrite - Negative Bedside Urine Leukocytes - Negative Esterase Point of care testing: Urine Dip Bedside Urine Glucose Negative Bedside Urine Bilirubin - Negative Bedside Urine Ketone - Negative Urine Specific [place] 1.010 Bedside Urine Occult Blood +/- Bedside Urine pH 7.0 Bedside Urine Protein - Negative Bedside Urine Urobilinogen - Negative Bedside Urine Nitrite - Negative Bedside Urine Leukocytes - Negative Esterase MDM Narrative Medical decision making narrative: CC: Weakness, uncontrolled tremor, diarrhea. Issues are all quite vague and it is unclear which are new. Uncertain diagnosis with complexity secondary to tangential history from patient Complicating co-morbidities: Depression, anxiety Corroborating data: Data collected from: patient, Social determinants of health that may influence the patients condition: Recently discharged from a group family home, does not feel that she is doing well living independently 2nd ED visit in the week since discharge Medical records reviewed: Records from [facility] ER visit yesterday are reviewed. CBC chemistries urine all obtained only significant finding was a potassium at 2.9. Respiratory panel was run and did not detect any specific viruses. Her chief complaint yesterday was chills and sweats for a week. Urine drug screen was negative. She was discharged home with potassium to take for an additional 20 days. Differential considered: Psychiatric decompensation, side effects from abrupt discontinuation of venlafaxine, hypokalemia, given workup done within 24 hours as described above infectious etiology worse is less likely. Exam documented above, pertinent findings include: Nonspecific, she seems frightened and tremulous quite tangential Lab Test results independently reviewed as above. Pertinent findings: CBC: No leukocytosis, no anemia Chemistries show potassium repleted and appropriate at 3.8 Consultations: Will need DIMMER BOARD OPERATOR involved in overall care for discharge home Treatments: She is given 75 mg of venlafaxine. From pharmacy records unclear whether she is taking 75 or 150 mg. It does look like she has not taken it for least a week and that may well be contributing to overall symptoms Re-evaluations:635am after a L of fluid she is actually feeling better still complaining of significant dizziness. I do think that the venlafaxine missing over the last week is contributing to her overall issues. She is many questions about her medications and I think she would benefit from pharmacy prepackaged medications. It sounds like she is planning to go grocery shopping with a friend this morning even though she is been home for an entire week. Sounds like she is still trying to get moved in to her living situation and is a bit overwhelmed with all of this. She is quite interested in talking with the director of social services. We will need to sort out medications. She is currently feeling overwhelmed with her transition back home but is denying any suicidal ideation. Care will be transferred to Dr. Fairchild at change of shift Discussion: Disposition: see below, along with detailed discharge instructions that have been reviewed with patient as well as indications for ED re-evaluation and additional outpatient follow up Dr. Faicrhild. Received turned over. Her assumed care of patient. The patient's history physical workup up to this point. Patient was seen by social work. Her medication was refilled. Plan was put in place her follow-up and a safe discharge home. She was given return precautions. Discharge Plan Departure Patient Disposition: Home Clinical Impression: Drug withdrawal, Depression with anxiety Activity Restrictions/Additional Instructions: A prescription for gabapentin was sent to [facility]. Contact your primary doctor for a follow-up. Return to the emergency department for new symptoms. Prescriptions: New gabapentin 400 mg capsule 400 mg PO TID Qty: 21 0RF No Action duloxetine 60 mg capsule,delayed release(DR/EC) 60 mg PO BID Qty: 60 0RF sumatriptan succinate [Imitrex] 6 mg/0.5 mL solution 6 mg SUBCUT Q1-4H PRN (Reason: migraine headache) Qty: 2.5 0RF gentamicin 0.3 % drops 2 drop EYE-LEFT Q4W Qty: 5 0RF sumatriptan succinate [Imitrex] 50 mg tablet See Rx Instructions .ROUTE .COMPLEX Qty: 12 0RF Rx Instructions: take 1 tab at onset of headache; if no relief may repeat 1 tab after at least 2 hrs; max = 4 tabs/24 hr naproxen [Naprosyn] 500 mg tablet 500 mg PO BID PRN (Reason: pain) Qty: 20 0RF prochlorperazine [Compazine] 25 mg suppository 25 mg NV Q12H PRN (Reason: nausea and vomiting) Qty: 12 0RF diphenhydramine HCl [Benadryl Allergy] 25 mg tablet 25 mg PO Q6H PRN (Reason: nausea and vomiting) Qty: 20 0RF Referrals: Chevy Gomez MD [Primary Care Provider] - Stand Alone Forms: Patient Portal/API
[2022-11-22] MEDS: VENLAFAXINE ER 75 MG CAP PO (06:16)
[2022-11-22 07:50] LABS: Add Manual Diff / Slide Review NO; Basophils Absolute Auto 0 /uL (0-100); Basophils Percent Auto 0.6 % (0-2); Eosinophils Absolute Auto 200 /uL (0-450); Eosinophils Percent Auto 2.3 % (2-4); Hematocrit 38.7 % (36-46); Lymphocytes Absolute Auto 1200 /uL (1100-4500); Lymphocytes Percent Auto 15.5 % (25-40); Mean Corpuscular HGB Conc 33.5 % (30-36); Mean Corpuscular Hemoglobin 28.5 PG (26-34); Mean Corpuscular Volume 85.1 fL (80-100); Monocytes Absolute Auto 600 /uL (0-900); Monocytes Percent Auto 7.7 % (3-14); Neutrophils Absolute Auto 5900 /uL (1500-7000); Neutrophils Percent Auto 73.9 % (50-75); Platelet Count 265 X10^3/uL (150-400); Red Blood Cell Count 4.55 X10^6/uL (4.0-5.2); Red Cell Distribution Width 13.2 % (11.6-14.8)
[2022-11-22 07:56] LABS: BUN Creatinine Ratio 27.7 (6-22); Blood Urea Nitrogen 18 mg/dL (7-17); Carbon Dioxide 25 mmol/L (22-32); Chloride 103 mmol/L (98-107); Estimated Glomerular Filt Rate > 60 mL/min (>60); Glucose 128 mg/dL (70-100); HEMOLYSIS 17 (0-50); Potassium 3.2 mmol/L (3.4-5.1); Sodium 139 mmol/L (137-145)
--- NOTE | 2022-11-22 08:29 | PC.NURSE ---
Patient pacing in room, reports increase agitation and i can't seem to stay still Patient states she feels dizzy and nauseated. Provider Lanker aware of patients condition.
--- NOTE | 2022-11-22 08:30 | PC.NURSE ---
Pt took own hydroxizine 25mg PO per Dr Fairchild
[2022-11-22] MEDS: LORazepam 0.5 MG TABLET 1 MG PO (08:34)
[2022-11-22 11:08] LABS: Bacteria Urine None Seen; Culture Indicated Urine Cult Not Indicated; RBC Urine 0-1/HPF (0-5/HPF); Squamous Epithelial Cell Urine None Seen (0-5/HPF); WBC Urine None Seen (0-5/HPF)
--- NOTE | 2022-11-22 12:35 | PC.NURSE ---
social work at bedside
--- NOTE | 2022-11-22 13:21 | PC.NURSE ---
At the request of the patient [facility] was contacted to initial transfer of medications to [facility]. [facility] called and they will initiate communication with [facility] to transfer patients profile over to [facility]. Katrina GUTHRIEW aware of this and updated patient and care plan.
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
== END 2022-11-22 14:04 | disposition home or self-care (01) ==
PROVIDERS: Emergency Provider Emergency Medicine; Family Provider Nurse Practitioner Primary Care; PCP Internal Medicine
DX: F41.8 Other specified anxiety disorders (principal); F19.939 Other psychoactive substance use, unspecified with withdrawal, unspecified
CPT/HCPCS: 36415; 80048; 81003; 81015; 85025; 99283

== ENCOUNTER 2023-10-01 12:35 | Emergency (ER) | payer MEDICARE, OTHER, MEDICAID, SELFPAY ==
[2023-10-01 12:45] VITALS: BP 147/80; PULSE 82; RESP 16; TEMP 36.5; O2SAT 97; BMI 27.5
--- NOTE | 2023-10-01 13:05 | ED_ITS ---
HPI - Ear Problem <Susanna Haney PA-C - Last Filed: 10/01/23 13:17> General Chief complaint: Ear Stated complaint: RIGHT EAR INFECTION FLUID NOT DRAINING Time Seen by Provider: 10/01/23 12:40 Source: patient and other Mode of arrival: Ambulatory History of Present Illness HPI Narrative: 58-year-old female presents with concern for right ear pain. Patient states that she developed some mild URI symptoms about 3 weeks ago with some runny nose and congestion and some ear discomfort. She saw providers for this 2-4 times over the last 3 weeks most recently she was prescribed a steroid nasal spray which she is been using for the past week. Prior to this she was prescribed antibiotics Augmentin but only for a 7 day course. She states she did take all of these antibiotics and she does not really feel like it resolved her symptoms. She says at the time that these were prescribed she was told that her eardrum was red and bulging and with pus. She says she was also referred to ENT but has not received a call back about this. She denies any drainage from her ear but states that her ear has continued to be painful especially with swallowing and she often has a popping sensation in her hearing is diminished. She does state that she had ear infections as a child but these primarily affected her left ear. She denies fevers chills sore throat persistent runny nose congestion headaches or any other symptoms. Related Data Previous Rx's Medication Instructions Recorded gentamicin 0.3 % eye drops 2 drop EYE-LEFT Q4W #5 mL 09/02/18 diphenhydramine HCl 25 mg tablet 25 mg PO Q6H PRN nausea and 05/20/20 (Benadryl Allergy) vomiting #20 tabs naproxen 500 mg tablet (Naprosyn) 500 mg PO BID PRN pain #20 tabs 05/20/20 prochlorperazine 25 mg rectal 25 mg IN Q12H PRN nausea and 05/20/20 suppository (Compazine) vomiting #12 ea sumatriptan succinate 50 mg tablet See Rx Instructions PO .COMPLEX 05/20/20 (Imitrex) #12 tabs duloxetine 60 mg capsule,delayed 60 mg PO BID #60 caps 02/19/21 release sumatriptan succinate 6 mg/0.5 mL 6 mg (0.5 mL) SUBCUT Q1-4H PRN 02/19/21 subcutaneous solution (Imitrex) migraine headache #2.5 mL gabapentin 400 mg capsule 400 mg PO TID #21 caps 11/22/22 amoxicillin 875 mg-potassium 1 tab PO Q12H otitis media, Right 10/01/23 clavulanate 125 mg tablet 10 days #20 tabs Allergies Allergy/AdvReac Type Severity Reaction Status Date / Time codeine AdvReac Nausea Verified 10/01/23 12:45 Review of Systems <Susanna Haney PA-C - Last Filed: 10/01/23 13:17> Review of Systems Narrative: See HPI Patient History <Susanna Haney PA-C - Last Filed: 10/01/23 13:17> Medical History Hypertension Hypothyroidism (acquired) Depression Interstitial cystitis Surgical History Hx of tonsillectomy History of cholecystectomy History of bladder surgery H/O abdominal hysterectomy Social History Smoking Status: Never smoker Smoking Status: Never smoker alcohol intake frequency: other Substance Use Type: does not use Exam <Susanna Haney PA-C - Last Filed: 10/01/23 13:17> Narrative Exam Narrative: GENERAL: 58 year old patient appears stated age. Well-developed patient, in mild distress. HEAD: Atraumatic. Normocephalic. EYES: Pupils equal round and reactive. Extraocular motions intact. No scleral icterus. No injection or drainage. ENT: Nose without bleeding, purulent drainage. Throat without erythema, tonsillar hypertrophy or exudate. Airway patent. The left TM is normal in appearance, pearly thakur with cone of light visible. Bilateral ear canals are normal in appearance, the right TM is bulging, injected/hyperemic and there is an opaque discoloration with opaque/cloudy appearing fluid behind the ear. There is mild-moderate erythema at the superior aspect of the eardrum. No lymphadenopathy noted. There is slight discomfort with manipulation of the right tragus. No pain with manipulation of the pinna. NECK: Trachea midline. Non tender CARDIOVASCULAR: Regular rate and rhythm without murmurs, gallops, or rubs. RESPIRATORY: Clear to auscultation. Breath sounds equal bilaterally. No wheezes, rales, or rhonchi. EXTREMITIES: Moving all extremities normal gait NEURO: AOx3. SKIN: No rash or erythema of visible areas Initial Vital Signs Initial Vital Signs: Vital Signs Temperature 97.7 F 10/01/23 12:45 Pulse Rate 82 10/01/23 12:45 Respiratory Rate 16 10/01/23 12:45 Blood Pressure 147/80 H 10/01/23 12:45 Pulse Oximetry 97 10/01/23 12:45 Oxygen Delivery Method Room Air 10/01/23 12:45 <Deidra Kumar DO - Last Filed: 10/02/23 07:07> Initial Vital Signs Initial Vital Signs: Vital Signs Temperature 97.7 F 10/01/23 12:45 Pulse Rate 82 10/01/23 12:45 Respiratory Rate 16 10/01/23 12:45 Blood Pressure 147/80 H 10/01/23 12:45 Pulse Oximetry 97 10/01/23 12:45 Oxygen Delivery Method Room Air 10/01/23 12:45 Course <Susanna Haney PA-C - Last Filed: 10/01/23 13:17> Vital Signs Vital signs: Vital Signs - 8 hr 10/01/23 12:45 Temperature 97.7 F Pulse Rate 82 Respiratory Rate 16 Blood Pressure 147/80 H Pulse Oximetry 97 Oxygen Delivery Method Room Air <Deidra Kumar DO - Last Filed: 10/02/23 07:07> Vital Signs Vital signs: Vital Signs - 8 hr 10/01/23 12:45 Temperature 97.7 F Pulse Rate 82 Respiratory Rate 16 Blood Pressure 147/80 H Pulse Oximetry 97 Oxygen Delivery Method Room Air Medical Decision Making <Susanna Haney PA-C - Last Filed: 10/01/23 13:17> Differential Diagnosis Differential Diagnosis: Otitis media, otitis externa, seasonal allergies, rhinitis, congestion Medical Records Medical records reviewed: Yes I reviewed the patient's medical records. Treatment and disposition Shared decision making:: Shared decision-making was used in determining plan for additional course of antibiotics and visit with ENT as outpatient and PCP. MDM Narrative Medical decision making narrative: 58-year-old female presents with concern for right ear pain limited improvement with recent course of antibiotics finished 5 days [employer] and use of steroid nasal spray for the last 7 days. Patient was prescribed Augmentin for a 7 day course on September 19 states she took these in their entirety finished them on the and did not feel significant improvement in her symptoms. These were prescribed after visit to an urgent care, unable to access these records however patient describes that she was told that her eardrum was bulging and very red. Today on her exam her eardrum is still somewhat bulging and slightly erythematous at the superior portion and injected. I suspect that she did not have a long enough course of antibiotics to treat her bacterial otitis media based on her exam today. She is agreeable to restarting antibiotics for a full 10 day course I do feel it is appropriate to treat with Augmentin again as it is more likely the duration of therapy was too short than that the antibiotic was inappropriate. She has not had fevers chills headaches or other concerning symptoms she has no persistent URI/viral symptoms and otherwise has been in her usual state of health. She is counseled to use caution regarding steroid nasal spray and that she may want to give this a break for a day or 2 before restarting. She is advised to continue with her oral antihistamine Zyrtec which she was also started on recently. She is provided with multiple options for possible ENT follow-up with numbers to call for ENT providers in the area. She is also encouraged to follow up with her primary care provider and talked to them about referral to ENT certainly we hope that her symptoms will resolve with a full course of antibiotics for 10 days. She advised to monitor for new or wo rsening symptoms and seek re-evaluation if these arise. Return precautions provided, follow-up plan discussed, all questions answered. Discharge Plan Departure Patient Disposition: Home Clinical Impression: Otitis media Qualifiers: Otitis media type: unspecified Laterality: right Qualified Code(s): H66.91 - Otitis media, unspecified, right ear Activity Restrictions/Additional Instructions: *You have been diagnosed with [otitis media] *What to do: *Please continue to take your regular medications as directed. [1 ] New medication prescriptions sent to your pharmacy: [Augmentin] [ ] New medication written as a paper prescription [ ] No new medications given *Please follow up with your primary care provider in 2-3 days, call for an appointment. Let them know you were seen in the Emergency Department and that we ask that you be seen in follow up. We will electronically transmit a record of today's note if your PCP is in our system. Based on your history and exam today I suspect that you have an incompletely treated ear infection (otitis media). You did take antibiotics for this recently but I think you need a longer course of antibiotics to fully treat this. I went ahead and prescribed a full course of antibiotics for 10 days to treat ear infection; please take the entire course even if you are feeling better. I would recommend that you see an ear nose and throat doctor as well as this seems to have been a persistent problem for you for the last 3 weeks or so. You may continue to use the nasal spray though you should be cautious about using steroid nasal sprays persistently for more than 3-5 days at a time and he may want to give herself a break from this. Do continue with the Zyrte/allergy medicine as this may also help to relieve some of your congestion. There are some names below of Ear Nose and Throat providers you can reach out to their offices we did not formally do referrals from the emergency department but you can call these offices and see if you can get in to be seen it is worth trying this and if your symptoms are not resolving completely after this course of antibiotics I recommend you get into be seen also think that you may have better luck with a referral from your primary care provider so it is worth talking to them about this as well. Certainly if you have new or worsening symptoms do not hesitate to seek re-evaluation *If you do not have a primary care provider please contact the [facility] Resource line at [phone]. They will ask some questions about your medical history and help get you set up with a doctor in the community. *Return to Emergency Department if you should have any new, worsening or concerning symptoms, such as [fever greater than 101 F, shaking chills, worsening pain, persistent vomiting or other bothersome symptoms] Prescriptions: New amoxicillin-pot clavulanate 875-125 mg tablet 1 tab PO Q12H 10 Days Qty: 20 0RF No Action duloxetine 60 mg capsule,delayed release(DR/EC) 60 mg PO BID Qty: 60 0RF sumatriptan succinate [Imitrex] 6 mg/0.5 mL solution 6 mg SUBCUT Q1-4H PRN (Reason: migraine headache) Qty: 2.5 0RF gabapentin 400 mg capsule 400 mg PO TID Qty: 21 0RF gentamicin 0.3 % drops 2 drop EYE-LEFT Q4W Qty: 5 0RF sumatriptan succinate [Imitrex] 50 mg tablet See Rx Instructions .ROUTE .COMPLEX Qty: 12 0RF Rx Instructions: take 1 tab at onset of headache; if no relief may repeat 1 tab after at least 2 hrs; max = 4 tabs/24 hr naproxen [Naprosyn] 500 mg tablet 500 mg PO BID PRN (Reason: pain) Qty: 20 0RF prochlorperazine [Compazine] 25 mg suppository 25 mg IN Q12H PRN (Reason: nausea and vomiting) Qty: 12 0RF diphenhydramine HCl [Benadryl Allergy] 25 mg tablet 25 mg PO Q6H PRN (Reason: nausea and vomiting) Qty: 20 0RF Referrals: Alonzo Bond MD [Physician] - Chato Boston MD [Physician] - Elias Hernandez MD [Physician] - Chevy Gomez MD [Primary Care Provider] - Stand Alone Forms: Patient Portal/API ED Sign-out <Deidra Kumar DO - Last Filed: 10/02/23 07:07> Cosign ED Attending Shashiature Attestation: I was available for consultation.
== END 2023-10-01 13:08 | disposition home or self-care (01) ==
PROVIDERS: Emergency Provider Student in an Organized Health Care Education/Training Program; Family Provider Nurse Practitioner Primary Care; PCP Internal Medicine
DX: H66.91 Otitis media, unspecified, right ear (principal)
CPT/HCPCS: 99281

== ENCOUNTER 2024-05-13 14:34 | Emergency (ER) | payer MEDICARE, OTHER, SELFPAY ==
[2024-05-13] VITALS (9 sets, daily range): BP systolic 144–200; BP diastolic 80–98; PULSE 71–91; RESP 18–19; TEMP 37.1; O2SAT 90–97; BMI 26.8
--- NOTE | 2024-05-13 14:41 | DI.RAD.S_ITS ---
PROCEDURE: XR CHEST 1V INDICATIONS: chest pain TECHNIQUE: One view of the chest was acquired. COMPARISON: [facility], , CHEST 1 VIEW, 05/02/2015, 17:41. FINDINGS: Surgical changes and devices: None. Lungs and pleura: Lungs are clear. No pleural effusions or pneumothorax. Mediastinum: Mediastinal contours appear normal. Heart size is normal. Bones and chest wall: No suspicious bony lesions. Overlying soft tissues appear unremarkable. IMPRESSION: No acute cardiopulmonary abnormality is seen. Approved by: Bryan Mai M.D. on 05/13/2024 at 14:02
[2024-05-13] MEDS: ASPIRIN 81 MG CHEW TAB 324 MG PO (14:45)
--- NOTE | 2024-05-13 14:49 | EKG_ITS ---
[facility] [address] [address] Test Date: 2024-05-13 Pat Name: Chelle Ramos Department: 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
--- NOTE | 2024-05-13 14:52 | ED_ITS ---
HPI - Chest Pain General Chief Complaint: Chest Pain Stated Complaint: palpatations, tremor, hbp, feeling unwell Time Seen by Provider: 05/13/24 14:52 Source: patient Mode of arrival: Ambulatory Limitations: no limitations History of Present Illness HPI narrative: 58-year-old female history pain hypertension dyslipidemia hypothyroidism, chronic depression who presents with complaint of feeling very anxious and having palpitations in her chest. Patient states she had been at [employer] gone shopping had lunch started to feel little bit unwell and anxious smoked some marijuana which is typical for her. She states she felt a lot of palpitations sort of a bounding heart beat. Denies any chest pain or pressure denies any shortness of breath. States she got a little bit sweaty. Pope little lightheaded but no syncope. No nausea or vomiting. No new swelling in extremities. No issues with bowel movements she is some chronic urinary frequency but states she has been told she was interstitial cystitis. No dysuria or incontinence. Patient states she is feeling improved at this time. She noted her systolic blood pressure was 190 at home so came for evaluation. States home medications include tramadol once daily, cholesterol medication antihypertensive, levothyroxine, prazosin nightly, trazodone nightly and melatonin. She has had prior hysterectomy and left oophorectomy, tonsillectomy, cholecystectomy and abdominal ex lap. Codeine makes her nauseated. No tobacco, no regular alcohol, uses marijuana regularly but no other recreational drugs. Follows with [facility] [place] for primary care. Related Data Previous Rx's Medication Instructions Recorded gentamicin 0.3 % eye drops 2 drop EYE-LEFT Q4W #5 mL 09/02/18 diphenhydramine HCl 25 mg tablet 25 mg PO Q6H PRN nausea and 05/20/20 (Benadryl Allergy) vomiting #20 tabs naproxen 500 mg tablet (Naprosyn) 500 mg PO BID PRN pain #20 tabs 05/20/20 prochlorperazine 25 mg rectal 25 mg [place] Q12H PRN nausea and 05/20/20 suppository (Compazine) vomiting #12 ea sumatriptan succinate 50 mg tablet See Rx Instructions PO .COMPLEX 05/20/20 (Imitrex) #12 tabs duloxetine 60 mg capsule,delayed 60 mg PO BID #60 caps 02/19/21 release sumatriptan succinate 6 mg/0.5 mL 6 mg (0.5 mL) SUBCUT Q1-4H PRN 02/19/21 subcutaneous solution (Imitrex) migraine headache #2.5 mL gabapentin 400 mg capsule 400 mg PO TID #21 caps 11/22/22 Allergies Allergy/AdvReac Type Severity Reaction Status Date / Time codeine AdvReac Nausea Verified 05/13/24 14:45 Review of Systems Review of Systems ROS Unobtainable: All systems reviewed & are unremarkable except as noted in HPI and below Patient History Medical History Hypertension Hypothyroidism (acquired) Depression Interstitial cystitis Surgical History Hx of tonsillectomy History of cholecystectomy History of bladder surgery H/O abdominal hysterectomy Social History Smoking Status: Never smoker Smoking Status: Never smoker alcohol intake frequency: other Substance Use Type: marijuana Exam Narrative Exam Narrative: GENERAL: Alert and oriented x three, well-appearing female in mild distress HEENT: Head normocephalic, atraumatic, EOMI, pupils reactive, face symmetric, moist mucous membranes NECK: Supple, full range of motion CARDIOVASCULAR: Regular rate and rhythm without murmurs, rubs or gallops. No JVD. No edema bilateral lower extremities. RESPIRATORY: Breath sounds equal bilaterally, no wheezes rales or rhonchi. No tachypnea or accessory muscle use. ABDOMEN: Soft, nontender. Normoactive bowel sounds all 4 quadrants. No guarding or rebound, rigidity, no mass : No CVA tenderness EXTREMITIES: Normal range of motion, no clubbing or edema. Neurovascularly intact NEUROLOGICAL: Cranial nerves II through XII grossly intact. Moving all extremities SKIN: Warm, dry, no petechiae, no rashes or lesions. Initial Vital Signs Initial Vital Signs: Vital Signs Pulse Oximetry 90 L 05/13/24 14:39 Course Orders Ordered: Discontinued Medications Aspirin (Aspirin 81 Mg Chew Tab) 324 mg PO NOW ONE Stop: 05/13/24 14:42 Last Admin: 05/13/24 14:45 Dose: 324 mg Documented By: AB Vital Signs Vital signs: Vital Signs - 8 hr 05/13/24 14:39 05/13/24 14:40 05/13/24 14:40 Temperature Pulse Rate 91 H Respiratory Rate Blood Pressure 200/98 H Pulse Oximetry 90 L 95 Oxygen Delivery Method 05/13/24 14:42 05/13/24 15:00 05/13/24 15:00 Temperature 98.7 F Pulse Rate 71 85 Respiratory Rate 18 Blood Pressure 200/98 H 179/91 H Pulse Oximetry 96 97 Oxygen Delivery Method Room Air 05/13/24 15:30 05/13/24 15:30 05/13/24 16:00 Temperature Pulse Rate 80 Respiratory Rate 19 Blood Pressure 148/84 H 147/82 H Pulse Oximetry 96 Oxygen Delivery Method 05/13/24 16:00 05/13/24 16:30 05/13/24 16:30 Temperature Pulse Rate 79 77 Respiratory Rate Blood Pressure 144/85 H Pulse Oximetry 94 95 Oxygen Delivery Method 05/13/24 17:00 05/13/24 17:00 Temperature Pulse Rate 75 Respiratory Rate 19 Blood Pressure 148/80 H Pulse Oximetry 96 Oxygen Delivery Method Room Air MDM - Chest Pain Lab Data 05/13/24 14:49 05/13/24 14:49 Labs: Lab Results 05/13/24 05/13/24 Range/Units 14:49 16:53 WBC 12.0 H (4.5-11.0) X10^3/uL RBC 5.08 (4.0-5.2) X10^6/uL Hgb 14.1 (12.0-16.0) g/dL Hct 42.2 (36-46) % MCV 83.1 (80-100) fL MCH 27.7 (26-34) PG MCHC 33.4 (30-36) % RDW 13.9 (11.6-14.8) % Plt Count 288 (150-400) X10^3/uL Neut % (Auto) 74.0 (50-75) % Lymph % (Auto) 17.8 L (25-40) % [place] % (Auto) 6.1 (3-14) % Eos % (Auto) 1.5 L (2-4) % Baso % (Auto) 0.6 (0-2) % Neut # (Auto) 8900 H (0520-0550) /uL Lymph # (Auto) 2100 (6011-1956) /uL [place] # (Auto) 700 (0-900) /uL Eos # (Auto) 200 (0-450) /uL Baso # (Auto) 100 (0-100) /uL PT 11.5 (9.4-12.5) SECONDS INR 1.0 (0.9-1.3) APTT 37 H (25.1-36.5) SECONDS Sodium 140 (137-145) mmol/L Potassium 3.6 (3.4-5.1) mmol/L Chloride 105 (98-107) mmol/L Carbon Dioxide 24 (22-32) mmol/L BUN 22 H (7-17) mg/dL Creatinine 0.86 (0.52-1.04) mg/dL Estimated GFR > 60 (>60) mL/min BUN/Creatinine Ratio 25.6 H (6-22) Glucose 162 H (80-110) mg/dL Calcium 9.5 (8.4-10.2) mg/dL Magnesium 2.2 (1.6-2.3) mg/dL Total Bilirubin 0.4 (0.2-1.3) mg/dL AST 32 (14-36) IU/L ALT 44 H (<35) IU/L Alkaline Phosphatase 95 (38-126) U/L Total Creatine Kinase 64 (30-135) U/L Troponin I < 0.012 < 0.012 (0.01-0.034) ng/mL NT-Pro-B Natriuret Pep 125 H (<125) pg/mL Total Protein 8.2 (6.3-8.2) g/dL Albumin 4.9 (3.5-5.0) g/dL Globulin 3.3 (1.7-4.1) g/dL Albumin/Globulin Ratio 1.5 (1.0-2.8) Lipase 130 (23-300) U/L Urine Dip Bedside Urine Glucose Negative Bedside Urine Bilirubin - Negative Bedside Urine Ketone - Negative Urine Specific [place] 1.015 Bedside Urine Occult Blood - Negative Bedside Urine pH 6.0 Bedside Urine Protein - Negative Bedside Urine Urobilinogen - Negative Bedside Urine Nitrite - Negative Bedside Urine Leukocytes - Negative Esterase Imaging Data Chest x-ray: Radiologist's Impression: Close Chest X-Ray (Signed) Bryan Mai - 05/13/[address] (Signed) Harris Lopez - 05/20/20 Launch?Image [address] [address] XRay Report Signed Patient: Chelle Ramos MR#: [id number] : 1965 Acct:[id number] Age/Sex: 58 / F Date of Service: 05/13/24 Loc: ED Accession Number: [id number] Procedure: XR chest 1V Ordering Provider: Meena Tanner D.O. PROCEDURE: XR CHEST 1V INDICATIONS: chest pain TECHNIQUE: One view of the chest was acquired. COMPARISON: [facility], , CHEST 1 VIEW, 05/02/2015, 17:41. FINDINGS: Surgical changes and devices: None. Lungs and pleura: Lungs are clear. No pleural effusions or pneumothorax. Mediastinum: Mediastinal contours appear normal. Heart size is normal. Bones and chest wall: No suspicious bony lesions. Overlying soft tissues appear unremarkable. IMPRESSION: No acute cardiopulmonary abnormality is seen. Approved by: Bryan Mai M.D. on 05/13/2024 at 14:02 ECG Data Attestation: I personally reviewed and interpreted this ECG as follows: Prior ECG tracings: available for review Interpretation: Sinus rhythm rate 82 FL 130 QRS of [address] elevation depression noted. Patient has prior from 06/01/2020 15 which appears similar EKG 2. Shows sinus rhythm rate of 76 FL 130 QRS 86 QTC of [address] elevation depression noted. [facility] Narrative Medical decision making narrative: 58-year-old female who had palpitations but a little bit of diaphoresis and lightheadedness earlier today patient had this after lunch describes feeling little bit unwell. Systolic blood pressure was in the 190s, patient was hypertensive initially but has been improving here in the department she has a 140 systolic at bedside during evaluation at 4:00 p.m.. Patient does not have any acute EKG changes appreciated, labs are overall appropriate. Chest x-ray is negative. Point of care urine is negative EKG shows no acute change Chest x-ray shows no acute change Labs, white count 12, hemoglobin of 14 platelets of 288. INR 1 sodium 140 potassium 3.6 chloride of 105 CO2 24 BUN 22 creatinine 0.86 glucose of 162 Mag 2.2 ALT is 44 but AST is 32 alk-phos is 95 bilirubin is 0.4 with a troponins less than 0.012 with a BNP of 125 and a lipase of 130. Repeat troponin negative and EKG shows no acute change on repeat Discussed with patient recommend Holter monitor or ZIO patch for evaluation of palpitations for follow-up. She states she has had 1 remotely in the past but does not recall the results but states she has been told she has had extra beats or PVCs before. Discharge Plan Departure Patient Disposition: Home Clinical Impression: Palpitations Instructions: DI for Palpitations Activity Restrictions/Additional Instructions: Follow up with your physician for recheck, talk with your physician about having a Holter monitor or ZIO patch to evaluate for palpitations or arrhythmias. Continue your home medications as prescribed. Please return for new or worsening symptoms, new chest pain or shortness of breath, lightheadedness or passing out, recurrent sweatiness or diaphoresis, persistent vomiting, new swelling in extremities or other new or concerning changes. Prescriptions: No Action duloxetine 60 mg capsule,delayed release(DR/EC) 60 mg PO BID Qty: 60 0RF sumatriptan succinate [Imitrex] 6 mg/0.5 mL solution 6 mg SUBCUT Q1-4H PRN (Reason: migraine headache) Qty: 2.5 0RF gabapentin 400 mg capsule 400 mg PO TID Qty: 21 0RF gentamicin 0.3 % drops 2 drop EYE-LEFT Q4W Qty: 5 0RF sumatriptan succinate [Imitrex] 50 mg tablet See Rx Instructions .ROUTE .COMPLEX Qty: 12 0RF Rx Instructions: take 1 tab at onset of headache; if no relief may repeat 1 tab after at least 2 hrs; max = 4 tabs/24 hr naproxen [Naprosyn] 500 mg tablet 500 mg PO BID PRN (Reason: pain) Qty: 20 0RF prochlorperazine [Compazine] 25 mg suppository 25 mg FL Q12H PRN (Reason: nausea and vomiting) Qty: 12 0RF diphenhydramine HCl [Benadryl Allergy] 25 mg tablet 25 mg PO Q6H PRN (Reason: nausea and vomiting) Qty: 20 0RF Referrals: Chevy Gomez MD [Primary Care Provider] - Stand Alone Forms: Patient Portal/API
[2024-05-13 14:54] LABS: Add Manual Diff / Slide Review NO; Basophils Absolute Auto 100 /uL (0-100); Basophils Percent Auto 0.6 % (0-2); Eosinophils Absolute Auto 200 /uL (0-450); Eosinophils Percent Auto 1.5 % (2-4); Hematocrit 42.2 % (36-46); Hemoglobin 14.1 g/dL (12.0-16.0); Lymphocytes Absolute Auto 2100 /uL (1100-4500); Lymphocytes Percent Auto 17.8 % (25-40); Mean Corpuscular HGB Conc 33.4 % (30-36); Mean Corpuscular Hemoglobin 27.7 PG (26-34); Mean Corpuscular Volume 83.1 fL (80-100); Monocytes Absolute Auto 700 /uL (0-900); Monocytes Percent Auto 6.1 % (3-14); Neutrophils Absolute Auto 8900 /uL (1500-7000); Platelet Count 288 X10^3/uL (150-400); Red Blood Cell Count 5.08 X10^6/uL (4.0-5.2); Red Cell Distribution Width 13.9 % (11.6-14.8)
[2024-05-13 14:58] LABS: Prothrombin Time 11.5 SECONDS (9.4-12.5)
[2024-05-13 15:01] LABS: PTT Partial Thromboplastin Tim 37 SECONDS (25.1-36.5)
[2024-05-13 15:04] LABS: Alanine Aminotransferase 44 IU/L (<35); Albumin 4.9 g/dL (3.5-5.0); Albumin Globulin Ratio 1.5 (1.0-2.8); Alkaline Phosphatase 95 U/L (38-126); Aspartate Aminotransferase 32 IU/L (14-36); BUN Creatinine Ratio 25.6 (6-22); Bilirubin Total 0.4 mg/dL (0.2-1.3); Blood Urea Nitrogen 22 mg/dL (7-17); Calcium 9.5 mg/dL (8.4-10.2); Carbon Dioxide 24 mmol/L (22-32); Chloride 105 mmol/L (98-107); Creatine Kinase 64 U/L (30-135); Estimated Glomerular Filt Rate > 60 mL/min (>60); Globulin 3.3 g/dL (1.7-4.1); Glucose 162 mg/dL (80-110); HEMOLYSIS < 15 (0-50); Lipase 130 U/L (23-300); Magnesium 2.2 mg/dL (1.6-2.3); Potassium 3.6 mmol/L (3.4-5.1); Sodium 140 mmol/L (137-145); Total Protein 8.2 g/dL (6.3-8.2)
[2024-05-13 15:15] LABS: NT-proBNP (BNP-Adult 18+) 125 pg/mL (<125); Troponin I < 0.012 ng/mL (0.01-0.034)
--- NOTE | 2024-05-13 17:01 | EKG_ITS ---
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
[2024-05-13 17:25] LABS: Troponin I < 0.012 ng/mL (0.01-0.034)
== END 2024-05-13 18:06 | disposition home or self-care (01) ==
PROVIDERS: Emergency Provider Emergency Medicine; Family Provider Nurse Practitioner Primary Care; PCP Internal Medicine
DX: R00.2 Palpitations (principal); R07.9 Chest pain, unspecified
CPT/HCPCS: 36415; 71045; 80053; 81003; 82550; 83690; 83735; 83880; 84484; 85025; 85610; 85730; 93005; 99284

== ENCOUNTER 2025-01-26 02:17 | Emergency (ER) | payer MEDICARE, OTHER, SELFPAY ==
--- NOTE | 2025-01-26 02:24 | ED_ITS ---
HPI - General Adult General Chief complaint: Nausea/Vomiting/Diarrhea Stated complaint: Vomiting, fluid in ear, dizzy, BOND Time Seen by Provider: 01/26/25 02:24 History of Present Illness HPI narrative: 59-year-old woman with a history of depression currently on venlafaxine who has had nausea and vomiting for the last 24 hours, unable to keep medications down yesterday or today. Dry heaves again just prior to arrival. Her partner had similar symptoms last week and is improving. She is not reporting any diarrhea. She is been chilled through much of the day think she probably has had a fever but isn't sure. No cough, low-grade headache, complains of dizziness and fullness in her left ear. No palpitations or dyspnea. Related Data Previous Rx's Medication Instructions Recorded gentamicin 0.3 % eye drops 2 drop EYE-LEFT Q4W #5 mL 09/02/18 diphenhydramine HCl 25 mg tablet 25 mg PO Q6H PRN nausea and 05/20/20 (Benadryl Allergy) vomiting #20 tabs naproxen 500 mg tablet (Naprosyn) 500 mg PO BID PRN pain #20 tabs 05/20/20 prochlorperazine 25 mg rectal 25 mg [place] Q12H PRN nausea and 05/20/20 suppository (Compazine) vomiting #12 ea sumatriptan succinate 50 mg tablet See Rx Instructions PO .COMPLEX 05/20/20 (Imitrex) #12 tabs duloxetine 60 mg capsule,delayed 60 mg PO BID #60 caps 02/19/21 release sumatriptan succinate 6 mg/0.5 mL 6 mg (0.5 mL) SUBCUT Q1-4H PRN 02/19/21 subcutaneous solution (Imitrex) migraine headache #2.5 mL gabapentin 400 mg capsule 400 mg PO TID #21 caps 11/22/22 Allergies Allergy/AdvReac Type Severity Reaction Status Date / Time codeine AdvReac Nausea Verified 05/13/24 14:45 Review of Systems Review of Systems Narrative: Pertinent positive and negative findings as per HPI Patient History Medical History Hypertension Hypothyroidism (acquired) Depression Interstitial cystitis Surgical History Hx of tonsillectomy History of cholecystectomy History of bladder surgery H/O abdominal hysterectomy Social History Smoking Status: Never smoker alcohol intake frequency: other Exam Initial Vital Signs Initial Vital Signs: Vital Signs Temperature 99.4 F 01/26/25 02:29 Pulse Rate 88 01/26/25 02:29 Respiratory Rate 20 01/26/25 02:29 Blood Pressure 177/87 H 01/26/25 02:29 Pulse Oximetry 96 01/26/25 02:29 Oxygen Delivery Method Room Air 01/26/25 02:29 General: Fatigued appearing, mildly dehydrated, alert and able to cooperate with history and exam HEENT: Dry mucous membranes, normal sclera with reactive pupils, tympanic membranes are pearly thakur bilaterally Respiratory: Lungs are clear to auscultation, no wheezing no rales no rhonchi. Full and symmetrical air movement Cardiac: Regular rate and rhythm no murmurs no bruits Abdomen: Soft, mild superficial tenderness from the retching she is been doing. No rebound or guarding Skin: Pale, decreased skin turgor Neurologic: Globally weak but Grossly neurologically intact with no obvious asymmetries or abnormalities Extremities: No trauma, no lower extremity edema Psych: Cooperative, appropriate insight and affect Course Orders Ordered: ED Orders 01/26/25 02:42 Complete Blood Count AUTO DIFF Stat Comprehensive Metabolic Panel Stat Lactate (Lactic Acid) Stat Magnesium Stat Urinalysis and Microscopic Stat 01/26/25 03:11 CT abdomen pelvis w con Stat Discontinued Medications Sodium Chloride (Normal Saline 0.9%) 1,000 mls @ 1,000 mls/hr IV BOLUS ONE Stop: 01/26/25 03:32 Last Admin: 01/26/25 02:51 Dose: 1,000 mls/hr Documented By: YUKI Ondansetron HCl (Ondansetron 4 Mg/2 Ml Inj) 4 mg IV NOW ONE Stop: 01/26/25 02:34 Last Admin: 01/26/25 02:51 Dose: 4 mg Documented By: YUKI Vital Signs Vital signs: Vital Signs - 8 hr 01/26/25 02:29 01/26/25 02:40 01/26/25 03:00 Temperature 99.4 F Pulse Rate 88 87 Respiratory Rate 20 16 Blood Pressure 177/87 H 156/75 H 165/77 H Pulse Oximetry 96 98 Oxygen Delivery Method Room Air Room Air 01/26/25 03:00 01/26/25 03:30 01/26/25 03:30 Temperature Pulse Rate 82 87 Respiratory Rate 18 Blood Pressure 152/73 H Pulse Oximetry 99 99 Oxygen Delivery Method Medical Decision Making Lab Data 01/26/25 02:42 01/26/25 02:42 Labs: Lab Results 01/26/25 Range/Units 02:42 WBC 9.5 (4.5-11.0) X10^3/uL RBC 4.98 (4.0-5.2) X10^6/uL Hgb 13.8 (12.0-16.0) g/dL Hct 40.8 (36-46) % MCV 82.0 (80-100) fL MCH 27.7 (26-34) PG MCHC 33.7 (30-36) % RDW 13.5 (11.6-14.8) % Plt Count 214 (150-400) X10^3/uL Neut % (Auto) 84.8 H (50-75) % Lymph % (Auto) 5.5 L (25-40) % [place] % (Auto) 8.9 (3-14) % Eos % (Auto) 0.3 L (2-4) % Baso % (Auto) 0.5 (0-2) % Neut # (Auto) 8100 H (3496-4182) /uL Lymph # (Auto) 500 L (0595-6432) /uL [place] # (Auto) 900 (0-900) /uL Eos # (Auto) 0 (0-450) /uL Baso # (Auto) 0 (0-100) /uL Sodium 136 L (137-145) mmol/L Potassium 3.6 (3.4-5.1) mmol/L Chloride 100 (98-107) mmol/L Carbon Dioxide 25 (22-32) mmol/L BUN 12 (7-17) mg/dL Creatinine 0.65 (0.52-1.04) mg/dL Estimated GFR > 60 (>60) mL/min BUN/Creatinine Ratio 18.5 (6-22) Glucose 141 H (80-110) mg/dL Lactate 1.8 (0.7-2.1) mmol/L Calcium 9.5 (8.4-10.2) mg/dL Magnesium 2.0 (1.6-2.3) mg/dL Total Bilirubin 0.6 (0.2-1.3) mg/dL AST 199 H (14-36) IU/L ALT 180 H (<35) IU/L Alkaline Phosphatase 133 H (38-126) U/L Total Protein 8.3 H (6.3-8.2) g/dL Albumin 4.9 (3.5-5.0) g/dL Globulin 3.4 (1.7-4.1) g/dL Albumin/Globulin Ratio 1.4 (1.0-2.8) Urine Color Yellow Urine Appearance Clear Urine pH 7.0 (4.5-8.0) Ur Specific [place] 1.020 (1.000-1.035) Urine Protein Negative (Negative) Urine Glucose (UA) Negative (Negative) g/dL Urine Ketones Negative (NEGATIVE) Urine Occult Blood Trace-intact (Negative) Urine Nitrate Negative (Negative) Urine Bilirubin Negative (NEGATIVE) Urine Urobilinogen 0.2 (0.2) E.U./dL Ur Leukocyte Esterase Negative (NEGATIVE) Urine RBC 1-5/hpf (0-5/HPF) Urine WBC None seen (0-5/HPF) Ur Squamous Epith Cells 0-1 /hpf (0-5/HPF) Urine Bacteria Occasional (0-1) (None) Ur Culture Indicated? Cult not indicated Vol Urine Centrifuged 10ml (spun) MDM Narrative Medical decision making narrative: CC: Nausea and vomiting for 24 hours Complicating co-morbidities: Depression, unable to keep medications down for 24 hours Data collected from: patient, partner Differential considered: Viral syndrome, food related, acute electrolyte abnormality, acute renal failure Exam documented above, pertinent findings include: Somewhat dehydrated, alert and appropriate, heart and lungs are benign. No signs of acute surgical abdomen Lab Test results independently reviewed as above. Pertinent findings: CBC is reassuring with no leukocytosis, slight left shift at 84.8%. No anemia Metabolic panel shows normal renal function, elevated AST at 199, ALT at 1 8, alk-phos at 1:33 a.m., normal bilirubin Imaging studies independently reviewed: CT scan of the abdomen done for increased liver studies shows no evidence of colitis, diverticulitis, bowel obstruction, obstructive uropathy or acute appendicitis. She does have 1 cm cyst within the left hepatic lobe and hepatic steatosis post cholecystectomy. Pancreas is unremarkable. Treatments: IV fluids, 1 L. IV Zofran, oral acetaminophen Discussion: 59-year-old woman with 24 hours of vomiting. No acute renal failure, electrolyte abnormalities. She did have slightly elevated liver enzymes with a CT scan that was essentially unremarkable. I do not suspect ascending cholangitis, there was no evidence for pancreatic mass, biliary obstruction or acute pancreatitis. She is able to eat and drink. I suspect this is a viral syndrome. We will be sent home with Zofran. She complains about her ears being full and I suspect this is viral etiology related. She also complains about the dizziness and I suspect that is because she has missed 2 days of her Effexor. There was no sign of life-threatening abnormality, no indication for additional imaging or workup and no need for hospitalization today. [place] are answered and she is safe for discharge Discharge Plan Departure Patient Disposition: Home Clinical Impression: Elevated liver enzymes Nausea & vomiting Qualifiers: Vomiting type: unspecified Qualified Code(s): R11.2 - Nausea with vomiting, unspecified Instructions: DI for Nausea -- Adult Activity Restrictions/Additional Instructions: Thank you for coming in today I believe you are little bit dehydrated from all the vomiting that you have done your kidney function looks good. You were given a L of fluid along with nausea medication. Your blood work does not show significant bacterial infection, there was no kidney failure, no electrolyte abnormalities. Your liver studies were slightly elevated in the CT scan was done that does not show any life-threatening abnormality. I suspect part of your dizziness is from the virus itself, part of it is because you have not had your Effexor, and I suspect the fullness in your ears is related to the virus that you are experiencing. On physical exam there was no evidence of acute ear infection today I have given you a couple of doses of Zofran, a nausea medicine if you needed. Please continue with plenty of fluid, Gatorade or other electrolyte drinks and begin adding fluid back with simple to digest foods such as bananas, rice, applesauce toast. If you find that you are getting worse or develop any new symptoms, please feel free to return to the emergency department for further evaluation. Prescriptions: No Action duloxetine 60 mg capsule,delayed release(DR/EC) 60 mg PO BID Qty: 60 0RF sumatriptan succinate [Imitrex] 6 mg/0.5 mL solution 6 mg SUBCUT Q1-4H PRN (Reason: migraine headache) Qty: 2.5 0RF gabapentin 400 mg capsule 400 mg PO TID Qty: 21 0RF gentamicin 0.3 % drops 2 drop EYE-LEFT Q4W Qty: 5 0RF sumatriptan succinate [Imitrex] 50 mg tablet See Rx Instructions .ROUTE .COMPLEX Qty: 12 0RF Rx Instructions: take 1 tab at onset of headache; if no relief may repeat 1 tab after at least 2 hrs; max = 4 tabs/24 hr naproxen [Naprosyn] 500 mg tablet 500 mg PO BID PRN (Reason: pain) Qty: 20 0RF prochlorperazine [Compazine] 25 mg suppository 25 mg [place] Q12H PRN (Reason: nausea and vomiting) Qty: 12 0RF diphenhydramine HCl [Benadryl Allergy] 25 mg tablet 25 mg PO Q6H PRN (Reason: nausea and vomiting) Qty: 20 0RF Referrals: Miscellaneous,Doctor, MD [Primary Care Provider] - Stand Alone Forms: Patient Portal/API/Survey
[2025-01-26 02:29] VITALS: BP 177/87; PULSE 88; RESP 20; TEMP 37.4; O2SAT 96; BMI 26.9
[2025-01-26 02:40] VITALS: BP 156/75; PULSE 87; RESP 16; O2SAT 98
[2025-01-26 02:49] LABS: Add Manual Diff / Slide Review NO; Basophils Absolute Auto 0 /uL (0-100); Basophils Percent Auto 0.5 % (0-2); Eosinophils Absolute Auto 0 /uL (0-450); Eosinophils Percent Auto 0.3 % (2-4); Hematocrit 40.8 % (36-46); Hemoglobin 13.8 g/dL (12.0-16.0); Lymphocytes Absolute Auto 500 /uL (1100-4500); Lymphocytes Percent Auto 5.5 % (25-40); Mean Corpuscular HGB Conc 33.7 % (30-36); Mean Corpuscular Hemoglobin 27.7 PG (26-34); Monocytes Absolute Auto 900 /uL (0-900); Monocytes Percent Auto 8.9 % (3-14); Neutrophils Absolute Auto 8100 /uL (1500-7000); Neutrophils Percent Auto 84.8 % (50-75); Platelet Count 214 X10^3/uL (150-400); Red Blood Cell Count 4.98 X10^6/uL (4.0-5.2); Red Cell Distribution Width 13.5 % (11.6-14.8); White Blood Cell Count 9.5 X10^3/uL (4.5-11.0)
[2025-01-26] MEDS: SODIUM CHLORIDE 0.9% 1,000 ML 1000 ML IV (02:51)
[2025-01-26] MEDS: ONDANSETRON 4 MG/2 ML INJ IV (02:51)
[2025-01-26 03:00] VITALS: BP 165/77; PULSE 82; O2SAT 99
[2025-01-26 03:00] LABS: Alanine Aminotransferase 180 IU/L (<35); Albumin 4.9 g/dL (3.5-5.0); Albumin Globulin Ratio 1.4 (1.0-2.8); Alkaline Phosphatase 133 U/L (38-126); Aspartate Aminotransferase 199 IU/L (14-36); BUN Creatinine Ratio 18.5 (6-22); Bilirubin Total 0.6 mg/dL (0.2-1.3); Blood Urea Nitrogen 12 mg/dL (7-17); Calcium 9.5 mg/dL (8.4-10.2); Carbon Dioxide 25 mmol/L (22-32); Chloride 100 mmol/L (98-107); Estimated Glomerular Filt Rate > 60 mL/min (>60); Globulin 3.4 g/dL (1.7-4.1); Glucose 141 mg/dL (80-110); HEMOLYSIS < 15 (0-50); Lactate (Lactic Acid) 1.8 mmol/L (0.7-2.1); Potassium 3.6 mmol/L (3.4-5.1); Sodium 136 mmol/L (137-145); Total Protein 8.3 g/dL (6.3-8.2)
--- NOTE | 2025-01-26 03:11 | DI.CT.S_ITS ---
PROCEDURE: CT ABDOMEN PELVIS W CON INDICATIONS: vomiting, elevated LFTs TECHNIQUE: After the administration of intravenous contrast, axial sections acquired from the lung bases to the pubic symphysis. Coronal and sagittal reformats were performed. For radiation dose reduction, the following was used: automated exposure control, adjustment of mA and/or kV according to patient size. COMPARISON: [facility], CR, XR CHEST 1V, 05/13/2024, 14:41. FINDINGS: Image quality: Diagnostic. Lower Chest: A small hiatal hernia is incidentally noted. ABDOMEN: Liver: No solid mass. A left hepatic cyst is incidentally noted, 1 cm. The liver is prominent in size. Gallbladder: Removed. Biliary ducts: No biliary dilation. Pancreas: No ductal dilation. Spleen: Size is within normal limits. Adrenal Glands: No adrenal nodules. Kidneys and Ureters: No significant hydronephrosis is seen. No obstructive uropathy. No solid mass. No complex renal cystic lesion which requires follow up. Stomach and Bowel: Normal colonic caliber, without significant wall thickening. Minimal distal colonic diverticulosis is seen, without findings of active diverticulitis. No dilated loops of small bowel are seen. No appendix (either normal or abnormal) is identified on this study. No focal right lower quadrant inflammatory change can be seen. Peritoneum: No abnormal intraperitoneal fluid. No free air. Ventral Wall: A trivial periumbilical hernia is seen, containing fat. Abdominal Nodes: No retroperitoneal or mesenteric adenopathy by size criteria. Vessels: Aorta and inferior vena cava are normal in size. PELVIS: Pelvic Organs: Unremarkable. Bladder: No bladder wall thickening, accounting for underdistention. Pelvic Nodes: No enlarged lymph nodes. Miscellaneous: No inguinal hernias are seen. Bones: No aggressive osseous abnormality. Mild dextroconvex scoliotic curvature is seen. There is focal L4-L5 degenerative change. Milder degenerative changes are seen elsewhere. IMPRESSION: No imaging explanation is found for this patient's presenting symptoms. Minimal distal colonic diverticulosis, without findings of active diverticulitis. Negative for small bowel obstruction. Mild hepatomegaly noted. Additional findings: Small hiatal hernia Simple left hepatic cyst Cholecystectomy Trivial periumbilical hernia Focal L4-L5 degenerative change Note: No significant discrepancy from the preliminary report. Dictated by: Patric St M.D. on 01/26/2025 at 6:27 Approved by: Patric St M.D. on 01/26/2025 at 6:32
[2025-01-26 03:13] LABS: Appearance Urine UA CLEAR; Bilirubin Urine UA NEGATIVE (NEGATIVE); Color Urine UA YELLOW; Glucose Urine UA NEGATIVE (Negative); Ketones Urine UA NEGATIVE (NEGATIVE); Leukocyte Esterase Urine UA NEGATIVE (NEGATIVE); Nitrite Urine UA NEGATIVE (Negative); Occult Blood Urine UA TRACE-INTACT (Negative); Protein Urine UA NEGATIVE (Negative); Urobilinogen Urine UA 0.2 E.U./dL (0.2)
[2025-01-26 03:17] LABS: Urine Volume 10mL (spun)
[2025-01-26 03:18] LABS: Bacteria Urine Occasional (0-1); RBC Urine 1-5/HPF (0-5/HPF); Squamous Epithelial Cell Urine 0-1 /HPF (0-5/HPF); WBC Urine None Seen (0-5/HPF)
[2025-01-26 03:19] LABS: Culture Indicated Urine Cult Not Indicated
[2025-01-26 03:30] VITALS: BP 152/73; PULSE 87; RESP 18; O2SAT 99
--- NOTE | 2025-01-26 03:41 | PC.NURSE ---
Ambulatory to restroom without difficulty or assistance
[2025-01-26] MEDS: ACETAMINOPHEN 325 MG TABLET 975 MG PO (04:05)
[2025-01-26] MEDS: ONDANSETRON 4 MG ODT PREPACK 1 BOTTLE MISC (04:31)
== END 2025-01-26 04:40 | disposition home or self-care (01) ==
PROVIDERS: Emergency Provider Emergency Medicine; Family Provider Nurse Practitioner Primary Care
DX: R74.8 Abnormal levels of other serum enzymes (principal); R11.2 Nausea with vomiting, unspecified
CPT/HCPCS: 36415; 74177; 80053; 81001; 83605; 83735; 85025; 96361; 96374; 99284; J2405; Q9967

== ENCOUNTER 2025-05-17 08:10 | Emergency (ER) | payer MEDICARE, OTHER, SELFPAY ==
[2025-05-17 08:15] VITALS: BP 149/83; PULSE 88; RESP 16; TEMP 36.4; O2SAT 97; BMI 27.3
--- NOTE | 2025-05-17 09:15 | ED_ITS ---
HPI - General Adult General Chief complaint: Dental/Oral Stated complaint: Left cheek is slightly swollen Time Seen by Provider: 05/17/25 08:42 History of Present Illness HPI narrative: 59 years old female came today complaining of left cheek swelling since yesterday. She complained of sensitive on her left upper tooth since Tuesday and went to see her dentist on Tuesday but the exam by her dentist showed no infection including the x-ray. She noted the swelling on the left cheek since yesterday. She denied any shortness of breath, chest pain, fever, chills, nausea vomiting, headaches, dizziness, loss of consciousness. Related Data Previous Rx's ?Medication ?Instructions ?Recorded gentamicin 0.3 % eye drops 2 drop EYE-LEFT Q4W #5 mL 1 11/02/17 diphenhydramine HCl 25 mg tablet 25 mg PO Q6H PRN naus ea and 05/20/20 (Benadryl Allergy) vomiting #20 tabs naproxen 500 mg tablet (Naprosyn) 500 mg PO BID PRN pa in #20 tabs 05/20/20 prochlorperazine 25 mg rectal 25 mg AR Q12H PRN nausea and 05/20/20 suppository (Compazine) vomiting #12 ea sumatriptan succinate 50 mg tablet See Rx Instructions PO .COMPLEX 05/20/20 (Imitrex) #12 tabs duloxetine 60 mg capsule,delayed 60 mg PO BID #60 caps 02/19/21 release sumatriptan succinate 6 mg/0.5 mL 6 mg (0.5 mL) SUBCUT Q1-4H PRN 02/19/21 subcutaneous solution (Imitrex) migraine headache #2.5 mL gabapentin 400 mg capsule 400 mg PO TID #21 caps 11/22 amoxicillin 500 mg capsule 500 mg PO TID #21 caps 11/10 Allergies Allergy/AdvReac Type Severity Reaction Status Date / Time codeine AdvReac Nausea Verified 05/17/25 08:18 Review of Systems Review of Systems Narrative: Positive for left cheek swelling, lip upper tooth pain. Negative for shortness of breath, chest pain, fever, chills, nausea vomiting, headaches, dizziness, loss of consciousness. Patient History Medical History Hypertension Hypothyroidism (acquired) Depression Interstitial cystitis Surgical History Hx of tonsillectomy History of cholecystectomy History of bladder surgery H/O abdominal hysterectomy alcohol intake frequency: other Exam Narrative Exam Narrative: GENERAL: Cooperative. No acute distress. HEAD: Atraumatic. Normocephalic. ENT: Bite byron and swelling without drainage on the mucosal surface left cheek. Patent airway. No tongue swelling. NECK: Supple. CARDIOVASCULAR: Regular rate and rhythm without murmurs, gallops, or rubs. RESPIRATORY: Clear to auscultation. Breath sounds equal bilaterally. No wheezes, rales, or rhonchi. GASTROINTESTINAL: Abdomen soft, non-tender, nondistended. EXTREMITIES: No edema or joint tenderness. BACK: Nontender without deformity or crepitance. No flank tenderness. NEURO: AOx3. SKIN: No rash or erythema of visible areas Initial Vital Signs Initial Vital Signs: Vital Signs Temperature 97.6 F 05/17/25 08:15 Pulse Rate 88 05/17/25 08:15 Respiratory Rate 16 05/17/25 08:15 Blood Pressure 149/83 H 05/17/25 08:15 Pulse Oximetry 97 05/17/25 08:15 Oxygen Delivery Method Room Air 05/17/25 08:15 Course Vital Signs Vital signs: Vital Signs - 8 hr 05/17/25 08:15 Temperature 97.6 F Pulse Rate 88 Respiratory Rate 16 Blood Pressure 149/83 H Pulse Oximetry 97 Oxygen Delivery Method Room Air Medical Decision Making [facility] Narrative Medical decision making narrative: 59 years old female came today complaining of left cheek swelling since yesterday and has complain of to take left upper teeth since Tuesday. She was seen by her dentist but the exam showed no infection. On exam today showed by Byron with my swelling of the mucosal surface lip cheek. She has patent airway without tongue swelling, throat swelling. She was sent home with amoxicillin and to set up primary care doctor for follow up outpatient. She had no sign of systemic infection. Return to ED precautions was given. Discharge Plan Departure Patient Disposition: Home Clinical Impression: Stomatitis Instructions: DI for Dental Pain Activity Restrictions/Additional Instructions: Please set up a primary care doctor for follow up outpatient in the next 1 if no improvement. Please come back to the emergency room if any worsening symptoms including but not limited to chest pain, shortness of breath, fever, nausea vomiting, headaches. Prescriptions: New amoxicillin 500 mg capsule 500 mg PO TID Qty: 21 0RF No Action duloxetine 60 mg capsule,delayed release(DR/EC) 60 mg PO BID Qty: 60 0RF sumatriptan succinate [Imitrex] 6 mg/0.5 mL solution 6 mg SUBCUT Q1-4H PRN (Reason: migraine headache) Qty: 2.5 0RF gabapentin 400 mg capsule 400 mg PO TID Qty: 21 0RF gentamicin 0.3 % drops 2 drop EYE-LEFT Q4W Qty: 5 0RF sumatriptan succinate [Imitrex] 50 mg tablet See Rx Instructions .ROUTE .COMPLEX Qty: 12 0RF Rx Instructions: take 1 tab at onset of headache; if no relief may repeat 1 tab after at least 2 hrs; max = 4 tabs/24 hr naproxen [Naprosyn] 500 mg tablet 500 mg PO BID PRN (Reason: pain) Qty: 20 0RF prochlorperazine [Compazine] 25 mg suppository 25 mg AR Q12H PRN (Reason: nausea and vomiting) Qty: 12 0RF diphenhydramine HCl [Benadryl Allergy] 25 mg tablet 25 mg PO Q6H PRN (Reason: nausea and vomiting) Qty: 20 0RF Referrals: ProviderSarita [Primary Care Provider, Family Practice] Stand Alone Forms: Patient Portal/API
[2025-05-17 09:26] VITALS: BP 143/77; PULSE 86; O2SAT 99
== END 2025-05-17 09:25 | disposition home or self-care (01) ==
PROVIDERS: Emergency Provider Emergency Medicine; Family Provider Nurse Practitioner Primary Care
DX: K12.1 Other forms of stomatitis (principal)
CPT/HCPCS: 99281